=== PATIENT | female | born 1950 | race Caucasian/White ===

== ENCOUNTER 2017-04-26 13:29 | Inpatient (IN) | payer MEDICARE ==
[~2017-04-26] VITALS: Ht 162.6 cm; Wt 98.8 kg
--- NOTE | ~2017-04-26 | CON ---
PATIENT'S NAME: CHEVY CARRENO V [facility] AGE: 66 Y [address] ROOM: [address] [address] LOCATION: [facility] ADMIT DATE: 04/26/2017 Consultation DISCHARGE DATE: FAMILY PHYSICIAN: Nicole Anguiano MD ATTENDING PHYSICIAN: HENRI BUITRAGO DATE OF CONSULTATION: 05/04/2017 REFERRING PHYSICIAN: KEELY BOJORQUEZ MD INFECTIOUS DISEASE CONSULTATION: REASON FOR EVALUATION: Infected knee. CHIEF COMPLAINT: The patient states she is still having some diarrhea. HISTORY OF PRESENT ILLNESS: Ms. Carreno is a pleasant 66-year-old woman. She presented to outside facility with significant abdominal pain, nausea, and vomiting on April 22. She also had loose stools. She was diagnosed with urinary tract infection and possible diverticulitis. She was on quinolone and Flagyl. After this started, she started to have some left knee swelling and pain. She did make her way in transfer over here to [facility]. The knee story is actually a little unusual. She has had multiple surgeries to the knee. Apparently a month or so ago, she felt some sort of pop or whatever and then there was abnormal motion to the knee. It was not hurting. She was actually scheduled to have a revision done for mechanical failure. She was not having pain at that time, and it was still functioning. However, she started to have pain and swelling after the GI symptoms began. In any event, she made her way over here. The knee was aspirated. It has grown an organism (see discussion at end of note). She underwent a washout on the . Hardware remains in place as apparently if it were to require removal, she would end up with an above knee amputation. She dehisced her wound and went back to surgery on the . Knee is reportedly looking okay. At this time, the dressing is not to be removed so I did not remove it. She is still having some loose stools. It has improved, but she is still having some. She still feels a little bit lousy overall. I am asked to evaluate. PAST MEDICAL HISTORY: Significant for multiple knee surgeries, thyroid issues, dyslipidemia, high blood pressure, and heart disease. SOCIAL HISTORY: PATIENT'S NAME: CHEVY CARRENO V [facility] AGE: 66 Y [address] ROOM: [address] [address] LOCATION: G3N ADMIT DATE: 04/26/2017 Consultation DISCHARGE DATE: FAMILY PHYSICIAN: Nicole Anguiano MD ATTENDING PHYSICIAN: HENRI BUITRAGO A Negative for tobacco, alcohol, or drug use. FAMILY HISTORY: Positive for heart disease. REVIEW OF SYSTEMS: Pertinent positives include: GENITOURINARY: The patient with catheter in place. MUSCULOSKELETAL: The patient with knee issues. GASTROINTESTINAL: The patient with some loose stools and a little bit of abdominal discomfort. The patient denies other symptoms. Remainder of complete review of systems otherwise negative. PHYSICAL EXAMINATION: GENERAL: The patient is lying in bed, in no acute distress. Appears nontoxic. HEENT: The patient is anicteric. No conjunctival lesions noted. Ears, nose, throat, and tongue have no thrush. CARDIOVASCULAR: Heart is regular rate and rhythm. RESPIRATORY: Breathing is easy and unlabored. LUNGS: Clear bilaterally. GASTROINTESTINAL: Abdomen is soft, normoactive. Bowel sounds are present. Not really tender. GENITOURINARY: There is a catheter in place. NEUROLOGIC: The patient is awake, alert, appropriate in conversation. LYMPHATIC: No cervical lymphadenopathy. MUSCULOSKELETAL: The patient's left knee is in a brace. INTEGUMENTARY: The patient's IV site looks okay. She has no rash. LABORATORY STUDIES: Are reviewed. Her culture from the knee is listed as MRSA, but it has been sensitive to oxacillin. This does not make sense. ASSESSMENT AND RECOMMENDATIONS: Staphylococcus aureus (sensitivities not sure). 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 I do not think we can completely sterilize this area. Although there is thought that this was a hematogenously seated, so relatively acute infection, it is a well-established knee and so the chance of complete sterilization of the joint may be somewhat small. Hopefully, however, we can knock things back so it does not act up down the road. Should she require explant, from what she is telling me she may well end up with an above knee amputation. I have called the laboratory to discuss her sensitivity data, as it does not make sense. Unfortunately, the microbiology people are not there now and the people in the lab cannot answer my questions for me. I wonder if it tested mecA positive and yet tested positive as sensitive to the antibiotics? This may be why it was tagged as MRSA. Alternatively, there could PATIENT'S NAME: CHEVY CARRENO V [facility] AGE: 66 Y [address] ROOM: [id number] [place], [place] [address] LOCATION: [facility] ADMIT DATE: 04/26/2017 Consultation DISCHARGE DATE: FAMILY PHYSICIAN: Nicole Anguiano MD ATTENDING PHYSICIAN: HENRI BUITRAGO be just a principal database developer problem and it is actually an MSSA. If this is an MSSA, we should use a beta-lactam antibiotic as it is more effective. If it is unclear, we will have to stick with the vancomycin. She will require parenteral antibiotics through June 08. At that time, I would change her to indefinite oral therapy. She is currently on rifampin of 1200 mg a day. This is an extremely large dose and twice what is normally used. Even for prosthetic heart valve infections, we normally do not go above 900 mg per day. I will cut her dose to 300 mg twice a day and see if this helps her stomach out any. Thank you for allowing me to participate in the care of Ms. Carreno. I will hopefully have a little bit more information once I can speak to the microbiology lab tomorrow. MD OZZY OLIVERAQ/modl /[id number] d: t: 05/05/17 0919, CONSULTATION REPORT
--- NOTE | ~2017-04-26 | PN ---
PATIENT'S NAME: CHEVY MARTIN V [facility] AGE: 66 Y [address] ROOM: [address] [address] LOCATION: G3 ADMIT DATE: 04/26/2017 Progress Notes DISCHARGE DATE: FAMILY PHYSICIAN: Nicole Anguiano MD ATTENDING PHYSICIAN: HENRI BUITRAGO DATE OF SERVICE: 05/10/2017 On evening rounds today, I noted a 1 x 2 cm stain at the distal one-third of the patient's Mepilex dressing. She had an upper endoscopy today. Her Lovenox was held for this. She denies any form of trauma to the knee. She states that she is having virtually no knee pain. I removed the Mepilex dressing. When I did so, a segment of the Dermabond that we had placed at the distal third of the incision was noted to have dislodged, and a slow steady stream of mild rust-colored translucent and non-purulent fluid started to drain from a 2-mm orifice at the distal third of the incision. There was no tenderness at the knee. There was no fluctuance at the knee. There was no erythema or abnormal warmth at the knee. The remainder of the incision was clean, dry, and intact with intact sutures. I cleansed the skin around this orifice with Betadine and applied pressure, but there was a slow trickle of ongoing drainage. There appeared to be some focal skin necrosis in this region. I have therefore recommended that she be taken to the Operating Room this evening for debridement of the affected region of necrotic skin and re-closure of this area. She understands that her prosthesis is still in jeopardy. I cleansed the skin with Betadine and applied a sterile compressive dressing, and re-applied her knee immobilizer. Risks, benefits, limitations, and alternatives to this procedure have been reviewed with the patient, and informed consent has been granted. Fortunately, her Lovenox has been held since yesterday, and she has been n.p.o. since breakfast due to her endoscopy today. All of her questions and concerns have been answered to her satisfaction. We will obtain deep cultures. We will continue to attempt to salvage her prosthesis and her leg. PATIENT'S NAME: CHEVY MARTIN V [facility] AGE: 66 Y [address] ROOM: [address] [address] LOCATION: G3 ADMIT DATE: 04/26/2017 Progress Notes DISCHARGE DATE: FAMILY PHYSICIAN: Nicole Anguiano MD ATTENDING PHYSICIAN: HENRI BUITRAGO MD MARY PABLO/denisa /[id number] d: 05/10/17 2338 t: 06/03/17 0748, PROGRESS NOTES
--- NOTE | ~2017-04-26 | OR ---
PATIENT'S NAME: CHEVY CARRENO V [facility] AGE: 66 Y [address] ROOM: [place] [address] LOCATION: [facility] ADMIT DATE: 04/26/2017 OR/Procedure Report DISCHARGE DATE: 05/13/2017 FAMILY PHYSICIAN: Nicole Anguiano MD ATTENDING PHYSICIAN: Deion Lemus SURGEON: Aldo Julian MD GEOTHERMAL ELECTRICAL ENGINEER: Jeet. DATE OF PROCEDURE: 05/10/2017 CORRECTED COPY -- ACCT NO / 05-23-2017 / KLD PREOPERATIVE DIAGNOSES: 1. Focal skin necrosis and focal wound dehiscence, left knee incision. 2. Status post irrigation and debridement of periprosthetic left knee infection. POSTOPERATIVE DIAGNOSES: 1. Focal skin necrosis and focal wound dehiscence, left knee incision. 2. Status post irrigation and debridement of periprosthetic left knee infection. PROCEDURE PERFORMED: Irrigation, debridement, and closure of left knee wound dehiscence (excision of skin, irrigation, and wound closure). ANESTHESIA: General endotracheal anesthesia. ESTIMATED BLOOD LOSS: Less than 10 mL. SPECIMENS: Fluid from wound for cell count and routine cultures. COMPLICATIONS: None. IMPLANTS: None. INDICATION FOR PROCEDURE: Ms. Carreno is a 66-year-old female who has a periprosthetic left knee infection. We are attempting to retain her implants due to the fact that she has had multiple previous revisions and severe distal femoral and proximal tibial bone loss (requiring segmental replacement of the proximal tibia and distal femur with a rotating hinge prosthesis). She has been experiencing virtually no knee pain, and her incision had appeared benign until the afternoon of surgery when a small area of focal drainage was noted on her Mepilex dressing. When this was removed, focal drainage was noted from a small orifice at the distal aspect of her incision where there was unhealthy skin at the margins. The drainage was nonpurulent and appears consistent with liquified hematoma. I recommended that the patient be taken promptly to the operating room for debridement of the skin margins and wound closure. She has antibiotic-impregnated dissolvable beads within the knee. Of note, this PATIENT'S NAME: CHEVY CARRENO V [facility] AGE: 66 Y [address] ROOM: [place] [address] LOCATION: [facility] ADMIT DATE: 04/26/2017 OR/Procedure Report DISCHARGE DATE: 05/13/2017 FAMILY PHYSICIAN: Nicoel Anguiano MD ATTENDING PHYSICIAN: Deion Lemus A region of the wound corresponds to the area where there is virtually no subcutaneous fascia or tissue of any sort between the skin and the segmental proximal tibial component. The patient understands the potential for persistent infection. As soon as this drainage was noted, the skin surrounding this was prepped with Betadine, and a sterile compressive dressing was applied. Informed consent granted. DESCRIPTION OF PROCEDURE: The patient positioned supine. Photographic documentation of the wound was obtained. General endotracheal anesthesia had been administered. A well-padded pneumatic tourniquet was placed around the left proximal thigh, but this was not used during the case. The left lower extremity was prepped and draped with vigilant sterile technique. The incision was clean, dry, and intact except for the above specified 2 mm orifice approximately 5 cm from the distal margin of the incision. I removed the nonresorbable cutaneous sutures 2 cm proximal and 2 cm distal to this region. There was marginal skin necrosis at the small area. I sharply debrided the skin margins (approximately 3 mm on each side). There were healthy bleeding skin margins at both the medial and lateral edges of the debrided wound. It should be noted that there was a moderate amount of translucent, brown-colored fluid (consistent with liquified hematoma) deep to the skin. This was sent for cell count and routine cultures. I irrigated the exposed portion of the wound with 2000 mL of sterile saline containing bacitracin. The skin was closed with buried interrupted 0 PDS sutures followed by horizontal mattress interrupted 2-0 nylon sutures. Photographic documentation of the wound was obtained after wound closure. I applied Dermabond to this segment of the wound prior to applying a new Mepilex dressing and a gently compressive Cheng wrap. The knee immobilizer was replaced with 5 layers of cast padding at its proximal and distal margins. The patient was extubated and transported to the postanesthesia care unit in stable, comfortable condition. The telephone number on the chart for the patient's was, in fact, the patient's cellphone number, so I contacted her daughter. I informed the patient's daughter that the patient's surgery had gone well, but that we will need to remove her prosthesis if we cannot get the wound healed and/or if we cannot successfully suppress this infection. I asked the patient's daughter to pass this information onto the patient's and encouraged her to have the patient's call me through the hospital answering service this evening if he desires. I explained that not only may the prosthesis need to be removed, but she is still at risk for requiring an above-knee amputation PATIENT'S NAME: CHEVY CARRENO V [facility] AGE: 66 Y [address] ROOM: [place] [address] LOCATION: [facility] ADMIT DATE: 04/26/2017 OR/Procedure Report DISCHARGE DATE: 05/13/2017 FAMILY PHYSICIAN: Nicole Anguiano MD ATTENDING PHYSICIAN: Deion Lemus (due to her history of recurrent infection and extensive bone loss). She is not a candidate for knee fusion based upon the extent of bone loss. MD MARY PABLO/denisa /[id number] CORRECTED COPY -- ACCT NO / 05-23-2017 / KLD d: 05/11/17 1139 t: 06/03/17 0753, OPERATIVE SUMMARY
--- NOTE | ~2017-04-26 | OR ---
PATIENT'S NAME: CHEVY MARTIN V [facility] AGE: 66 Y [address] ROOM: [place] [address] LOCATION: [facility] ADMIT DATE: 04/26/2017 OR/Procedure Report DISCHARGE DATE: FAMILY PHYSICIAN: PHYSICIAN, UNKNOWN ATTENDING PHYSICIAN: HENRI BUITRAGO SURGEON: Aldo Julian MD CLIENT EVALUATOR: DATE OF PROCEDURE: 04/26/2017 PREOPERATIVE DIAGNOSES: 1. Left knee effusion. 2. Potential septic arthritis. 3. Potential acute periprosthetic infection. 4. Recent urinary tract infection. 5. Recent acute intra-abdominal process with suspected possible hematogenous dissemination of infection to left knee. POSTOPERATIVE DIAGNOSES: 1. Left knee effusion. 2. Potential septic arthritis. 3. Potential acute periprosthetic infection. 4. Recent urinary tract infection. 5. Recent acute intra-abdominal process with suspected possible hematogenous dissemination of infection to left knee. PROCEDURE PERFORMED: Left knee aspiration. ANESTHESIA: Local. SPECIMENS: Synovial fluid for Gram stain, cell count, and routine culture. COMPLICATIONS: None. INDICATIONS FOR PROCEDURE: Please refer to my separately dictated consultation note from this afternoon. The patient was informed of the risk of iatrogenic infection. Informed consent was granted. DESCRIPTION OF PROCEDURE: With the patient positioned supine, the anterolateral aspect of her left knee was prepped several times with DuraPrep. Subcutaneous tissues lateral to the patella were infiltrated with 5 mL of 1% plain lidocaine using a 25-gauge needle. The skin was re-prepped with DuraPrep, and a 20-gauge needle was advanced through the anesthetized area and into the joint space. The 7 mL of frankly purulent, non-translucent fluid was aspirated. Unfortunately, this confirmed my preoperative suspicion that this could represent a periprosthetic infection. Fluid analysis is pending. PATIENT'S NAME: CHEVY MARTIN V [facility] AGE: 66 Y [address] ROOM: [place] [address] LOCATION: [facility] ADMIT DATE: 04/26/2017 OR/Procedure Report DISCHARGE DATE: FAMILY PHYSICIAN: PHYSICIAN, UNKNOWN ATTENDING PHYSICIAN: HENRI BUITRAGO However, I have informed the patient that we anticipate proceeding with irrigation and debridement and attempted prosthetic retention first thing tomorrow morning (pending medical clearance). Medical workup of her abdominal pain (in General Surgical consultation) is pending. I have made arrangements for urgent Operating Room availability tomorrow morning. Compatible parts will be available by then such that we can exchange the patient's bearing. We will place antibiotic-impregnated beads and treat her with six weeks of intravenous antibiotics and subsequent chronic oral suppressive antibiotics. She understands that suppression of the infection may fail (under which circumstances, component extraction and potential above-knee amputation may be warranted). She has lost too much bone for arthrodesis to be an option. She gives us consent to proceed with component extraction tomorrow if we deem this absolutely necessary, but she wishes to do everything possible to attempt to salvage her prosthesis. We discussed technical aspects of this procedure, as well as risks and limitations thereof. We have specifically discussed the potential for persistent and/or recurrent infection, deep venous thrombosis, pulmonary embolism, neurovascular complications, blood transfusion risks, as well as the potential need for secondary irrigation and debridement, as well as potential need for above-knee amputation at a later date. Informed consent was granted. MD MARY PABLO/denisa /[id number] d: 04/27/17 0022 t: 05/01/17 2145, OPERATIVE SUMMARY
--- NOTE | ~2017-04-26 | CON ---
PATIENT'S NAME: CHEVY CARRENO V [facility] AGE: 66 Y [address] ROOM: [address] [address] LOCATION: [facility] ADMIT DATE: 04/26/2017 Consultation DISCHARGE DATE: FAMILY PHYSICIAN: Nicole Anguiano MD ATTENDING PHYSICIAN: HENRI BUITRAGO REFERRING PHYSICIAN: KEELY BOJORQUEZ MD HISTORY OF PRESENT ILLNESS: Ms. Carreno developed serosanguineous drainage from the distal aspect of her left knee incision night before last. Inspection of the wound at that point demonstrated focal drainage from the distal aspect of her incision. The skin was cleansed with Betadine, and a new sterile occlusive dressing was applied with compression. Recurrent drainage was noted through the Mepilex dressing today. I have held her Lovenox due to the fact that the drainage was noted to be sanguinous night before last. The patient denies any trend of increased discomfort. In fact, her knee pain has been decreasing with time. She has been bearing full weight, but she notes that her preoperative recurvatum has been eradicated. Inspection demonstrates that the Mepilex dressing and overlying Cheng wrap are saturated with sanguineous fluid. The proximal two-thirds of her incision is clean, dry, and intact. A 3 cm segment and the distal one-third of her incision has dehisced approximately 2 cm wide, and there are exposed antibiotic impregnated beads. There is no exposed hardware. IMPRESSION: Wound dehiscence, periprosthetic left knee infection (methicillin-resistant Staphylococcus aureus), compromised skin, absence of underlying fascia. RECOMMENDATIONS: For irrigation and debridement and wound closure. The patient understands that removal of her hardware may be necessary at a later date. It would appear that underlying sutures have failed secondary to increased tension on this area associated with the fact that there is no underlying fascia. I will irrigate with Bactisure as well. I have confirmed that this is available. I reviewed risks, benefits, limitations, and alternatives to this procedure. Again, removal of her implants would leave extremely compromised residual bone (so much though that reimplantation might be an option for her, and, hence, above knee amputation may be necessary). Therefore, we will continue to attempt to retain her implants. However, if the wound breaks down again, we PATIENT'S NAME: CHEVY CARRENO V [facility] AGE: 66 Y [address] ROOM: [id number] [place], [place] [address] LOCATION: [facility] ADMIT DATE: 04/26/2017 Consultation DISCHARGE DATE: FAMILY PHYSICIAN: Nicole Anguiano MD ATTENDING PHYSICIAN: HENRI BUITRAGO King will proceed with resection arthroplasty and potential above-knee amputation. She understands and accepts this. We reviewed the potential for persistent and/or recurrent infection, deep venous thrombosis, pulmonary embolism, mortality, neurovascular complications, blood transfusion risks, and the potential need for further surgery. Arrangements have been made for surgery later today. MD MARY PABLO/denisa /[id number] d: 05/01/17 2338 t: 05/11/17 1743, CONSULTATION REPORT
--- NOTE | ~2017-04-26 | DS ---
PATIENT'S NAME: CHEVY MARTIN V [facility] AGE: 66 Y [address] ROOM: [address] [place], [place] [address] LOCATION: G3N ADMIT DATE: 04/26/2017 Discharge Summary DISCHARGE DATE: 05/13/2017 FAMILY PHYSICIAN: Nicole Anguiano MD ATTENDING PHYSICIAN: Deion Lemsu PRINCIPAL DIAGNOSIS: 1. Methicillin-susceptible Staphylococcus aureus, left knee periprosthetic infection. 2. Mechanical failure, left total knee. 3. Left knee wound dehiscence. 4. Acute kidney injury. 5. Gastroenteritis with persistent nausea. 6. Chronic hypokalemia. 7. Anemia, blood loss type. 8. Essential hypertension. 9. Moderate PCM (which is protein calorie malnutrition). 10. Vitamin D deficiency. 11. Obesity. HOSPITAL COURSE: Please reference any of the admitting data to the history and physical as dictated by Dr. Deion Lemus. Briefly, this 66-year-old lady who was admitted into an outside hospital for gastroenteritis, was placed on Levaquin and Flagyl, was transferred here for higher level of care and further evaluation and management. The gastroenterology workup proceeded. A CT abdomen and pelvis showed no acute concern. Amylase and lipase were negative. A procalcitonin level was mildly elevated at 1.80. Urinalysis was negative for infection. She did have a mild elevated sedimentation rate of 81 and CRP of 27.8. She was given symptomatic support with IV analgesia and antiemetics. She was placed on IV fluids. She was placed on Zosyn empirically. She reported pain in her knee and x-ray showed concerns of gas in the subcutaneous tissues as well as significant soft tissue swelling and joint effusion and because of the elevated inflammatory markers, an orthopedic consultation was obtained. Aspirate of the left knee was reportedly pus-filled. Because of concern for periprosthetic infection, her Zosyn was then changed to vancomycin and IV ceftriaxone. She was further evaluated by surgery given her abdominal issues but most likely felt to be gastroenteritis, so she was optimized for surgical irrigation and debridement as well as the revision of the left knee arthroplasty and revision of the entire femoral component except for the femoral stem. He also revised the tibial insert and rotating hinge linkage and bushing. An extensive synovectomy was done and antibiotic-impregnated beads were placed. Postoperatively, she recovered relatively well. She was kept on the IV antibiotics. Culture from the [facility] showed MRSA. Blood cultures PATIENT'S NAME: CHEVY MARTIN V [facility] AGE: 66 Y [address] ROOM: [id number] [place], [place] [address] LOCATION: [facility] ADMIT DATE: 04/26/2017 Discharge Summary DISCHARGE DATE: 05/13/2017 FAMILY PHYSICIAN: Nicole Anguiano MD ATTENDING PHYSICIAN: Deion Lemus remained negative. Dr. Julian added rifampin per pharmacy dosing. PICC line was placed. 48 hours after blood culture were obtained and were deemed negative. On the , the patient's wound dehisced and she was taken back to the operating room for a secondary irrigation and debridement of the left knee including debridement of the skin and antibiotic-impregnated beads. She then returned and recovered. We held off on Lovenox until okay with Orthopedics starting on 05/03/2017. She did have some postoperative bleeding but did not require any transfusion trending her hemoglobin. Infectious Disease consultation was obtained on the with Dr. Jackson who reviewed the sensitivities and found that the MRSA listed was sensitive to oxacillin. So further review with micro team reported errant culture data, which actually was MSSA. Also found to have a supratherapeutic dose given rifampin, so this was changed. Because of the MSSA, the patient's vancomycin was stopped and changed to cefazolin for appropriate coverage with the rifampin. The patient then proceeded for a third irrigation and debridement and closure of the left knee wound on 05/10/2017 without complication. She was mobilized safely with physical therapy but felt to be needing transition to swing bed or usp facility for close observation and further restorative cares as well as antibiotic treatment. The patient had complicated stay given the patient's gastroenteritis when she initially presented. She was C. diff negative. She was kept prophylactically on a probiotic. She continued to have persistent nausea even with oral and IV antiemetics. She did get somewhat better but was not taking adequate oral intake. Narcotic regimen was changed as this was felt initially a secondary cause but she did not have a good response. So, we then felt that maybe secondary to her supratherapeutic rifampin dosing, she was having a side effect of toxicity; however, her liver function tests were within normal limits. She did have some associated diarrhea and electrolyte loss requiring oral and IV replacement. She had a mild acute kidney injury which required IV fluid resuscitation. Because of the persistence, we asked Gastroenterology for consultation who proceeded with an endoscopy which did not reveal anything. Biopsies were taken. Antireflux prescriptions were maximized. Medications in general were minimized. We prescribed Zofran 30 minutes prior to all medication use in the morning and evening with some benefit. We also stopped the rifampin as concern for associated nausea. This was discussed first with Infectious Disease. If no improvement in 48 hours though, the patient should be noted to resume the rifampin at the previous dosing. CONSULTING PROVIDERS: 1. Dr. Aldo Julian of Orthopedics. 2. Dr. Jackson of Infectious Disease. 3. Dr. Ash of Gastroenterology. PROCEDURES: On 04/26/2017, the patient underwent a left knee aspiration. On PATIENT'S NAME: CHEVY MARTIN V [facility] AGE: 66 Y [address] ROOM: [address] [address] LOCATION: [facility] ADMIT DATE: 04/26/2017 Discharge Summary DISCHARGE DATE: 05/13/2017 FAMILY PHYSICIAN: Nicole Anguiano MD ATTENDING PHYSICIAN: Deion Lemus 04/27/2017, the patient underwent an irrigation and debridement of the left knee with revision of the left total knee arthroplasty as well as a revision of the tibial polyethylene insert and rotating hinge linkage and bushing. She had an extensive synovectomy and placement of antibiotic-impregnated beads. On 05/01/2017, the patient underwent a secondary irrigation and debridement of the left knee with placement of new antibiotic-impregnated beads. On 05/10/2017, the patient underwent an irrigation and debridement and closure of the left knee wound dehiscence. The patient underwent an endoscopy with Gastroenterology. RADIOLOGIC IMAGING: Initial chest x-ray was negative. A knee x-ray showed pertinent positive results of soft tissue swelling and evidence of joint effusion with gas in the subcutaneous tissues concerning for cellulitis and osteomyelitis. CT abdomen and pelvis upon initial presentation showed no acute findings. A postoperative knee x-ray on 04/27/2017, showed appropriate antibiotic beads in place. A chest x-ray on 05/04/2017, showed no evidence of pneumonia. MICROBIOLOGY DATA: Stools were negative, blood cultures were negative, initial synovial fluid was MSSA positive, urine was negative. LABORATORY DATA: Pertinent positive results were elevated CRP and sedimentation rate. Her renal function showed a normal creatinine up to 1.5 and on dismissal was 1.2. Potassium replacement occurred nearly daily. She had finally optimized on day of discharge with a potassium 3.7, sodium 142, chloride 107, CO2 of 28, calcium of 10.4. Liver function showed an AST of 30, ALT of 23, alkaline phosphatase 108, total bilirubin 0.4, amylase and lipase were normal. A TSH was 15.40 on day of discharge. Vitamin D level was 16. Pre-albumin was 13. Synovial counts and color showed pink with 4+ turbidity, 428,000 red blood cells, and 416,200 white blood cells. DISCHARGE MEDICATIONS: 1. Cefepime 2 g IV q.12 until 06/08/2017. 2. Tylenol 1000 mg p.o. every 6 hours. 3. Amlodipine 10 mg p.o. every day. 4. Os-Isidoro 500 mg p.o. twice daily with meals. 5. Lovenox 30 mg subcutaneous twice daily. 6. Pepcid 20 mg p.o. twice daily. 7. Flonase 50 mcg per puff, 2 puffs each nares every day. 8. Apresoline 25 mg p.o. 4 times daily. PATIENT'S NAME: CHEVY MARTIN V [facility] AGE: 66 Y [address] ROOM: [place] [address] LOCATION: [facility] ADMIT DATE: 04/26/2017 Discharge Summary DISCHARGE DATE: 05/13/2017 FAMILY PHYSICIAN: Nicole Anguiano MD ATTENDING PHYSICIAN: Deion Lemus 9. Levothyroxine 125 mcg p.o. daily, this is a new dose. 10. Claritin 10 mg p.o. every night at bedtime. 11. Lopressor 50 mg p.o. twice daily. 12. Nystatin powder to be applied topically 3 times daily to the groin for 2 weeks total, stop date is 05/18/2017. 13. Zofran ODT 4 mg p.o. twice daily at 0700 and 2030, 30 minutes prior to morning and bedtime medications with strict instructions. 14. Prilosec 20 mg p.o. twice daily. 15. Potassium chloride 20 mEq p.o. twice daily. 16. Pravastatin 40 mg p.o. every night at bedtime. 17. Florastor 250 mg p.o. twice daily. 18. [place] 10/325 mg 1 p.o. every 6 hours as needed for severe pain. 19. Vitamin D 50,000 units, once weekly on Wednesdays. Stop date 06/29/2017 at 0900 hours. 20. Tylenol 650 mg p.o. every 6 hours as needed. Max 4000 mg per day. 21. Dulcolax 10 mg per rectum as needed. 22. Chloraseptic [place] 1 p.o. every 2 hours as needed. 23. Diazepam 2.5 to 5 mg p.o. every 6 hours as needed. 24. Benadryl 25-50 mg p.o. every 6 hours as needed. 25. Benadryl cream 1 application topically twice daily as needed for itching to affected area. 26. Imodium 2 mg p.o. as needed for loose stools. 27. Milk of magnesia 30 mL p.o. as needed for constipation. 28. Ultram 50 mg p.o. every 4 hours as needed. 29. Chlorthalidone 25 mg p.o. every morning. 30. Naproxen is stopped. 31. Hold lisinopril until further evaluated by her primary care provider, Dr. Rizo. DISCHARGE INSTRUCTIONS: The patient will be discharged to [facility] under the care of Dr. Jamie Rizo. Dr. Garcia spoke with Dr. Rizo at the time of discharge and updated him on the current patient status and hospitalization. He will see her at [facility] at his next visit. She will also need to follow up with Dr. Julian in 1 week as well as Infectious Disease, next 05/18/2017, appointment to be determined. Her code status will be full code. Her diet as tolerated. Health supplement 3 times daily and as needed. Her weightbearing status is as tolerated with absolutely no range of motion and keep left leg elevated. Occupational and Physical Therapy to evaluate and treat the patient as indicated. Dressing changes to the left knee are recommended as do not change the dressings. Please call Dr. Julian's office PATIENT'S NAME: CHEVY MARTIN V [facility] AGE: 66 Y [address] ROOM: [place] [address] LOCATION: [facility] ADMIT DATE: 04/26/2017 Discharge Summary DISCHARGE DATE: 05/13/2017 FAMILY PHYSICIAN: Nicole Anguiano MD ATTENDING PHYSICIAN: Deion Lemus immediately if any signs or symptoms of increased pain, increased fever, drainage, or erythema around the site. She is to have a left knee immobilizer on at all times. Followup laboratory testings to include a CBC weekly along with a CMP and sedimentation rate on 05/17/2017. She should also have her pre- albumin checked as needed and a vitamin D level follow up on 07/06/2017. PICC line cares to be routine. Her rehab potential is good. Her discharge potential is good. The patient and family are well aware of the condition and prognosis of the patient. The above line of management was discussed with the patient and all questions were answered with statements of satisfaction and understanding. Total time arranging discharge was greater than 35 minutes and coordinating the care of this patient. Thank you for allowing us to participate in care of this patient while at [facility]. VESTA POTTS APRN, APRN FOR MD ROE BOSWELL/denisa /[id number] CC: MD Jamie Nichols MD d: t: 05/14/17 1833, DISCHARGE SUMMARY
--- NOTE | ~2017-04-26 | CON ---
PATIENT'S NAME: CHEVY MARTIN V [facility] AGE: 66 Y [address] ROOM: [address] [place], [place] [address] LOCATION: G3N ADMIT DATE: 04/26/2017 Consultation DISCHARGE DATE: FAMILY PHYSICIAN: Nicole Anguiano MD ATTENDING PHYSICIAN: HENRI BUITRAGO DATE OF CONSULTATION: 05/09/2017 REFERRING PHYSICIAN: KEELY BOJORQUEZ MD REFERRING PROVIDER: Tamie Garcia MD REASON FOR CONSULTATION: Diarrhea and persistent nausea. HISTORY OF PRESENT ILLNESS: This is a very pleasant 66-year-old female, who was admitted on April 26, 2017, with an infected left knee, status post I and D of the left knee periprosthetic infection that completed on 05/01/2017. The patient previous to her admission began having significant nausea, vomiting, and diarrhea. This has not been worked up essentially secondary to her acute knee infection. The patient has been seen by Infectious Disease and has been given numerous antibiotics. Stool workup has been completed that has been negative for O and P, occult culture, as well as C. diff. The patient states that her symptoms began all of the sudden at the end of March that began with nausea and vomiting. She says at this time her vomit was much more bilious in nature without any blood. She was admitted to an outside facility at that time and then subsequently developed loose diarrhea. At this time, they thought it was related to gastroenteritis, though her symptoms have continued. She does report having a colonoscopy done within the last 10 years that she states was negative. Denies any history of upper endoscopy. 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 The patient states that her nausea is consistent throughout the day. She does state that the vomiting has subsided, though she continues to feel nauseous. For diarrhea, she does state that it is very loose as well as "hard to control" at times. She does complain of significant urgency. Denies any blood or melena in the stool. She does say at one point it appeared to be maroon-colored, though denies any of the change in color recently. She does have some abdominal cramping located on the right lower side. Denies any praveen abdominal pain, fever, or chills associated with this. PAST MEDICAL HISTORY: Multiple knee surgeries, thyroid issues, dyslipidemia, high blood pressure, and heart disease. PATIENT'S NAME: CHEVY MARTIN V [facility] AGE: 66 Y [address] ROOM: [address] [place], [place] [address] LOCATION: [facility] ADMIT DATE: 04/26/2017 Consultation DISCHARGE DATE: FAMILY PHYSICIAN: Nicole Anguiano MD ATTENDING PHYSICIAN: HENRI BUITRAGO SOCIAL HISTORY: Negative for tobacco, alcohol, or drug use. FAMILY HISTORY: Positive for heart disease. Denies any known gastrointestinal diseases or allergies to her knowledge. ALLERGIES: LATEX. CURRENT MEDICATIONS: Please refer to the medication administration record. REVIEW OF SYSTEMS: All-point review of systems was completed. All were negative with the exception of those identified in the history of present illness. PHYSICAL EXAMINATION: GENERAL: A very pleasant, 66-year-old female, who appears to be in no acute distress. VITAL SIGNS: Temperature 98.4, pulse of 81, respirations of 16, blood pressure 174/79, and oxygen saturation is 92% on room air. SKIN: [place], warm, and dry. No jaundice. HEENT: Head is normocephalic and atraumatic. Pupils are equal, round, and reactive to light. Sclerae are clear. Nonicteric. Oral mucosa is pink and moist. No thyromegaly. NECK: Soft and supple. CARDIOVASCULAR: Regular. Normal S1 and S2. RESPIRATORY: Respirations even and unlabored. LUNGS: Clear to auscultation. ABDOMEN: Soft, round, nontender, and nondistended. Bowel sounds are positive x4 quadrants. MUSCULOSKELETAL: No muscle weakness or atrophy. EXTREMITIES: No edema. NEUROLOGIC: Grossly nonfocal. LABORATORY DATA AND IMAGING STUDIES: Again, stool workup has been negative for occult stool, C. diff, O and P, as well as a culture. White blood cell count of 8.9, hemoglobin of 8.7, hematocrit of 28.2, and platelets of 351. Chemistry panel includes a glucose of 132, BUN of 15, creatinine of 1.4, sodium of 140, potassium of 3.0, chloride of 101, CO2 of 28, albumin of 2.1, phosphorus of 3.5, and magnesium of 1.9. Previous amylase and lipase completed on 05/07/2017, showed amylase of 43 and lipase of 208. CRP at that time was 10.10. TSH completed on 05/07/2017, showed a thyroid of 17.6. In regard to diagnostics, the patient did undergo a PATIENT'S NAME: CHEVY MARTIN V [facility] AGE: 66 Y [address] ROOM: [address] [address] LOCATION: [facility] ADMIT DATE: 04/26/2017 Consultation DISCHARGE DATE: FAMILY PHYSICIAN: Nicole Anguiano MD ATTENDING PHYSICIAN: HENRI BUITRAGO A CT of the abdomen and pelvis on admission, 04/26/2017, this showed no free air with no findings of bowel obstruction, surgically absent gallbladder, vascular calcifications, and small sliding hiatal hernia. ASSESSMENT AND PLAN: Again, this is a very pleasant 66-year-old female, who was admitted on 04/26/2017 with infected left knee, Methicillin-sensitive Staphylococcus aureus in source, with wound dehiscence status post I and D of the left knee periprosthetic infection. We were asked to see in consultation for the patient's persistent nausea and diarrhea. At this time, we will discuss with the patient's medical team. I do question that the patient will need to undergo an upper endoscopy to rule out peptic ulcer disease as well as possible colonoscopy with biopsy to rule out microscopic colitis. This may be postinfectious irritable bowel syndrome with the patient's acute infection that is currently present. Again, this will be discussed with the Medical Team. The patient is willing to go forth with these procedures if needed. Further recommendations to be given after discussion with Medical Care Team. Thank you for this consult. SINCERE MORALES APRN FOR JASWANT ROSALES MD MMF/modl /[id number] d: 05/09/171932 t: 05/12/17 1643, CONSULTATION REPORT
--- NOTE | ~2017-04-26 | CON ---
PATIENT'S NAME: CHEVY MARTIN V [facility] AGE: 66 Y [address] ROOM: [id number] [place], [place] [address] LOCATION: GPCU ADMIT DATE: 04/26/2017 Consultation DISCHARGE DATE: FAMILY PHYSICIAN: PHYSICIAN, UNKNOWN ATTENDING PHYSICIAN: HENRI LEMUS DATE OF CONSULTATION: 04/26/2017 REFERRING PHYSICIAN: KEELY BOJORQUEZ MD HISTORY OF PRESENT ILLNESS: Dr. Lemus has requested that I provide an inpatient consultation on this 66- year-old female. I have been asked to evaluate her knee. 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 She underwent a distal femoral replacement and proximal tibial replacement- type hinge revision total knee arthroplasty. Her postoperative course was significant for slow epithelialization of the skin at the distal aspect of her incision. However, she never developed an infection and her knee has served her very well over the past year. Approximately one month ago, she experienced a sudden "pop" in her knee, after which her knee began to hyperextend. She has been able to continue to bear full weight on her knee. Her presentation was suspicious for mechanical failure of the hinge component of her revision knee construct. I consulted with the manufacture and I was informed that had been a series of instances of the plastic extension block on the axle fracturing (presenting in a similar fashion). I convinced the patient to undergo revision and she had been scheduled to undergo revision of her axle mechanism later this week. The patient's knee had been pain free and it was difficult to convince her to undergo this revision due to the fact that she has recently started a new job (2 weeks ago), and given the fact that her knee has been pain-free and continuing to function well (except for the recurvatum). Nonetheless, she agreed to being scheduled for revision of her hinge mechanism later this week. I have had her in a knee brace with an extension block and she has continued to wear this. She awoke last Tuesday (4 days ago) with no knee pain. She went to work and had no pain at work. She was on her feet all day at work. She developed abdominal pain that night. She went to bed with no knee pain. She states that she "tossed and turned all night" because of abdominal pain. She states, "it felt like my guts were twisting." She awoke with left knee pain. She noticed this is when she first started bearing weight on the left knee. She attributed her knee pain to having "tossed and PATIENT'S NAME: CHEVY MARTIN V [facility] AGE: 66 Y [address] ROOM: [address] [address] LOCATION: GPCU ADMIT DATE: 04/26/2017 Consultation DISCHARGE DATE: FAMILY PHYSICIAN: PHYSICIAN, UNKNOWN ATTENDING PHYSICIAN: HENRI LEMUS turned all night." She denies any form of trauma to the knee. Her abdomen remained a much greater source of discomfort. She endured this throughout the day on Tuesday, but she developed chills and progressive knee pain. She was admitted to the [facility] with signs and symptoms of "gastroenteritis" (nausea, abdominal pain, and diarrhea). She was diagnosed with gastroenteritis and she was found to have a urinary tract infection. She has been on antibiotics over the past 3 days. The Hospitalist Team was called by the [facility] earlier today and Dr. Lemus accepted the patient for transfer. The patient states that she "did not pay much attention to the knee" while at [place] due to the fact that her abdomen was the primary source of discomfort. She states that her abdomen was far more symptomatic than her knee. She states that her knee has been essentially pain free when she lays supine in bed. Her knee has been painful when she attempts to bear weight. She has noticed progressive swelling of her left knee over the past few days. Her abdomen remains much more severely symptomatic than her knee. She states that her abdominal pain has improved only slightly over the past 4 days. The patient states that she called my office yesterday to inform that she would need to cancel her knee surgery this Tuesday due to the fact that she had developed a urinary tract infection and abdominal discomfort and had been hospitalized. She states that she did not mention that her knee bothered her due to the fact that her abdomen was her primary source of discomfort and that she had attributed her knee discomfort to having been so active on Tuesday. PHYSICAL EXAMINATION: GENERAL: The patient is alert and oriented. She has good recall and gives a consistent history. Nonetheless, she is in moderate distress (which she attributes to abdominal pain). She denies significant knee pain at rest. ABDOMEN: Soft, but diffusely tender. EXTREMITIES: Her left knee demonstrates considerable subcutaneous fluctuance. She is unable to maintain her knee in an extended position. There is no gross varus or valgus laxity. There is no deformity. There are no active skin lesions. There is a well-healed midline scar. There is no erythema. There is mild generalized increased warmth and moderate generalized tenderness at the knee. There is no flexion contracture at the knee. She is able to actively dorsiflex and plantar flex the left ankle with good motor strength. 1+ dorsalis pedis pulse. RADIOGRAPHS: Left knee and left tibia and fibula AP and lateral radiographs demonstrate a well-fixed, well-aligned, tumor-type hinge prosthesis. The tibial and femoral stems are cemented. These are extended cemented stems. There is no subluxation at the knee. However, the tibial tubercle remnant seems to have migrated somewhat anteriorly and laterally. There are 2 foci of subcutaneous PATIENT'S NAME: CHEVY MARTIN V [facility] AGE: 66 Y [address] ROOM: [address] [place] [id number] [facility] ADMIT DATE: 04/26/2017 Consultation DISCHARGE DATE: FAMILY PHYSICIAN: PHYSICIAN, UNKNOWN ATTENDING PHYSICIAN: HENRI LEMUS air at the knee. There is no fracture of the femoral or tibial shafts, and the tibial and femoral components remain well fixed. IMPRESSION: Septicemia (presumably of abdominal and/or urinary tract infection origin). Ongoing acute abdominal symptoms. Recent onset of acute left knee swelling. The differential diagnosis for the acute left knee pain and swelling includes mechanical irritation of the knee (associated with high activity level and recent failure of the hinge mechanism) versus hematogenous dissemination of infection from her recently diagnosed urinary tract infection and/or intraabdominal infectious process (including potential diverticulitis), versus a combination of both. RECOMMENDATIONS: I am extremely concerned regarding the potential for hematogenous dissemination of infection to her knee. Hopefully, this is not the case, but aspiration is warranted, and the subcutaneous air noted on the plain radiographs is concerning. The patient has given informed consent to proceed with aspiration. I have informed her that periprosthetic infection (if present) may be difficult to eradicate and that, therefore, an above knee amputation may be necessary. We will do everything possible to salvage the limb. I have explained the potential for a false-negative aspiration (given the fact that the patient has been on several days of intravenous antibiotics). I am concerned about the patient's abdominal exam. Dr. Lemus has ordered a CT scan. I have asked Dr. Martin (general surgeon on-call) to evaluate the patient's abdomen as well. I have requested that compatible bearing mechanism components be brought in to be available earlier in the week than had previously been planned. Instrumentation is in the hospital, but implants are en route from [place]. The patient will be kept at bedrest until further notice. Mechanical DVT prophylaxis has been initiated. I have discussed my thoughts and recommendations directly with Dr. Lemus. PATIENT'S NAME: CHEVY MARTIN V [facility] AGE: 66 Y [address] ROOM: [address] [address] LOCATION: GPCU ADMIT DATE: 04/26/2017 Consultation DISCHARGE DATE: FAMILY PHYSICIAN: PHYSICIAN, UNKNOWN ATTENDING PHYSICIAN: HENRI LEMUS MD JMW/denisa /[id number] CC: Henri Lemus MD d: 04/26/17 2347 t: 05/01/17 2142, CONSULTATION REPORT
--- NOTE | ~2017-04-26 | OR ---
PATIENT'S NAME: CHEVY MARTIN V [facility] AGE: 66 Y [address] ROOM: [address] [address] LOCATION: [facility] ADMIT DATE: 04/26/2017 OR/Procedure Report DISCHARGE DATE: 05/13/2017 FAMILY PHYSICIAN: Nicole Anguiano MD ATTENDING PHYSICIAN: Deion Lemus SURGEON: Aldo Julian MD SLASHER: DATE OF PROCEDURE: 04/27/2017 ADDENDUM: It should be noted that the physician's assistant professor of philosophy played an active, integral role throughout this entire operation. By providing expert retraction, they greatly facilitated and expedited safe and effective exposure of the distal femur, proximal tibia and patella for preparation and implantation of the components. They were also actively involved in the patient's positioning, prepping and draping, as well as wound closure. MD MARY PABLO/denisa /[id number] d: 05/21/17 1421 t: 06/03/17 0751, OPERATIVE SUMMARY
--- NOTE | ~2017-04-26 | HP ---
PATIENT'S NAME: CHEVY MARTIN V [facility] AGE: 66 Y [address] ROOM: [place] [address] LOCATION: GPCU ADMIT DATE: 04/26/2017 History & Physical DISCHARGE DATE: FAMILY PHYSICIAN: PHYSICIAN, UNKNOWN ATTENDING PHYSICIAN: HENRI BUITRAGO DATE OF SERVICE: CHIEF COMPLAINT: Abdominal pain. HISTORY OF PRESENT ILLNESS: A 66-year-old lady with a past medical history of hypertension, hyperlipidemia, coronary artery disease without any stenting, presented to the local hospital with abdominal pain, nausea, and vomiting which started on April 22. She had abdominal pain, which is located in the center of the abdomen, colicky in nature, present all the time, relieved with defecation, increased with oral intake, associated with nausea and dry heaving, but no episode of vomiting were noted. She also endorsed having diarrhea multiple episodes without any dark or any red stool. She did endorse having fever and chills since Tuesday. She denied any chest pain, any shortness of breath, but did endorse having some sputum production. No burning on urination. No extremity swelling. No PND or orthopnea noted. She denied any changes in her eyes, any trouble swallowing, any headache, or any dizziness. In the outside hospital, she was treated for gastroenteritis with Levaquin as well as Flagyl. She was also noted to be hyponatremic as well as hypokalemic which was treated over there. An abdominal x-ray was done, which did not reveal any etiology of abdominal pain. She is transferred here for further medical care. REVIEW OF SYSTEMS: All other systems were reviewed and were negative except as mentioned in the HPI. ALLERGIES: THE PATIENT IS ALLERGIC TO LATEX. PAST MEDICAL HISTORY: Hypothyroidism, hyperlipidemia, hypertension, coronary artery disease without any stenting, and degenerative joint disease. MEDICATIONS: Medications are being reconciled right now. PATIENT'S NAME: CHEVY MARTIN V [facility] AGE: 66 Y [address] ROOM: [place] [address] LOCATION: GPCU ADMIT DATE: 04/26/2017 History & Physical DISCHARGE DATE: FAMILY PHYSICIAN: PHYSICIAN, UNKNOWN ATTENDING PHYSICIAN: HENRI BUITRAGO PAST SURGICAL HISTORY: Multiple knee surgeries, hysterectomy as well as cholecystectomy. SOCIAL HISTORY: Never a smoker. No alcohol or drug abuse. FAMILY HISTORY: Her family history is extensive for multiple family members positive for coronary artery disease. PHYSICAL EXAMINATION: VITAL SIGNS: Blood pressure 144/71, 85, 94% on room air, and respiratory rate of 16. GENERAL: In mild acute distress, due to abdominal pain. HEENT: Head: Atraumatic and normocephalic. Eyes: Nonicteric. No pallor. Oropharynx: Dry mucous membranes. CARDIOVASCULAR: S1 and S2. No murmurs, gallops, or rubs. LUNGS: Clear to auscultation bilaterally. ABDOMEN: Soft, tender in the hypogastrium as well as in the umbilical region. Bowel sounds are present. EXTREMITIES: No clubbing, cyanosis, or edema. PSYCHIATRIC: Normal affect, mood, and speech. NEUROLOGIC: Cranial nerves 2 through 12 intact. No motor or sensory deficit noted. MUSCULOSKELETAL: Left knee swelling, tenderness and erythema LABORATORY DATA: Lab work from the outside facility showed white count of 11.3 today, hemoglobin of 10, and platelets of 144. Sodium of 130, potassium of 2.6, chloride 97, bicarb 22, glucose 187, creatinine 1.3, calcium of 8.5, total protein of 6.2, and albumin 2.4. C-reactive protein of 25. ASSESSMENT AND PLAN: Septic Arthritis: Aspiration of pus by orthopedics. I&D in am. Vancomycin and ceftriaxone in interim. Abdominal pain with unknown etiology. At this point, we are going to work this up with all the broad differentials. We will get a CBC, CMP, lipase, and amylase level. To rule out any infectious cause of this enteritis, we will get the stool ova and parasites, leukocytes as well as C. diff assay. I will get a CAT scan of the abdomen with the IV contrast to delineate the etiology of this abdominal pain at this point. We will get a chest x-ray as well. Urinalysis and cultures will be ordered as well. Further management will depend on the lab work and the patient's condition. We will start her on some IV antibiotics at this point, with the Zosyn and we will monitor her lactic acid and procalcitonin levels. Essential hypertension. We will continue to monitor at this point, and start home dose of medications if needed. PATIENT'S NAME: MARTIN, CHEVY V [facility] AGE: 66 Y [address] ROOM: [address] [place], [place] [address] [facility] ADMIT DATE: 04/26/2017 History & Physical DISCHARGE DATE: FAMILY PHYSICIAN: PHYSICIAN, UNKNOWN ATTENDING PHYSICIAN: HENRI BUITRAGO Hyperlipidemia. We will observe at this point. Hyponatremia. I believe this is secondary to hypervolemia and we will treat her aggressively with the IV fluids and continue to monitor. Continue to monitor I and Os. Hypokalemia, was being treated at the outside hospital. We will recheck the potassium and we will replace as needed. Deep vein thrombosis prophylaxis with Lovenox. The patient is full code. MD FIDEL SOLORZANO/denisa /[id number] D: [id number] T: [id number] HISTORY & PHYSICAL
--- NOTE | ~2017-04-26 | OR ---
PATIENT'S NAME: CHEVY CARRENO [facility] AGE: 66 Y [address] ROOM: [address] [place], [place] [address] LOCATION: [facility] ADMIT DATE: 04/26/2017 OR/Procedure Report DISCHARGE DATE: FAMILY PHYSICIAN: Nicole Anguiano MD ATTENDING PHYSICIAN: HENRI BUITRAGO SURGEON: Aldo Julian MD [employer] EQUIPMENT OPERATOR: Aldo Conley. DATE OF PROCEDURE: 05/01/2017 PREOPERATIVE DIAGNOSES: 1. Wound dehiscence, left knee. 2. Status post irrigation and debridement of left knee periprosthetic infection. 3. Well-fixed segmental distal femoral and proximal tibial replacements with long cemented tibial and femoral stem. POSTOPERATIVE DIAGNOSES: 1. Wound dehiscence, left knee. 2. Status post irrigation and debridement of left knee periprosthetic infection. 3. Well-fixed segmental distal femoral and proximal tibial replacements with long cemented tibial and femoral stem. PROCEDURE PERFORMED: Secondary irrigation and debridement of left knee (including debridement of skin and previously placed antibiotic impregnated beads) with placement of new antibiotic impregnated calcium sulfate beads. ANESTHESIA: General endotracheal anesthesia. ESTIMATED BLOOD LOSS: Less than 20 mL. DRAINS: None. SPECIMEN: Synovial fluid for culture. IMPLANTS: Stimulan antibiotic impregnated calcium sulfate beads (30 mL containing a total of 3 g of vancomycin and 3.6 g of tobramycin). COMPLICATIONS: None. INDICATION FOR PROCEDURE: Ms. Carreno is a 66-year-old female upon whom I performed an irrigation and debridement of a periprosthetic left knee infection last week. She has severely compromised distal femoral and proximal tibial bone stock from multiple previous revisions (including a previous 2- stage revision for previous infection). She has associated compromised fascia PATIENT'S NAME: CHEVY CARRENO [facility] AGE: 66 Y [address] ROOM: [address] [place], [place] [address] LOCATION: [facility] ADMIT DATE: 04/26/2017 OR/Procedure Report DISCHARGE DATE: FAMILY PHYSICIAN: Nicole Anguiano MD ATTENDING PHYSICIAN: HENRI BUITRAGO at the distal half of her wound. Every effort has been made to retain her components based upon the fact that she has a segmental replacement of the distal femur and proximal tibia (removal of which would most likely not be amenable to repeat reconstruction). Cultures from the irrigation and debridement last week have demonstrated methicillin-resistant Staphylococcus aureus. Risks, benefits, limitations, and alternatives to this procedure have been thoroughly reviewed with the patient. She understands the prosthesis removal may need to be considered probably we have reviewed the fact that above knee amputation may still be necessary. We discussed the potential for persistent and/or recurrent infection, neurovascular complications, blood transfusion risks, deep venous thrombosis, pulmonary embolism, mortality, and potential need for further surgery. Informed consent was granted. DESCRIPTION OF PROCEDURE: The patient was positioned supine after administration of general endotracheal anesthesia. Prophylactic antibiotics were administered. A well-padded pneumatic tourniquet was placed around the left proximal thigh. The left lower extremity was prepped and draped with vigilant sterile technique. Inspection of the wound demonstrated that the distal one-third of the incision had dehisced to a maximum width of 2 cm. Antibiotic impregnated calcium sulfate pellets filled this defect. There was no active drainage. There was no malodor. There was no purulence. The previously placed subcuticular Monocryl suture was noted to have ruptured at its midpoint and multiple loops of subcutaneous simple interrupted 0 PDS sutures were noted to have torn through soft tissues (the sutures themselves had not ruptured). The appearance of the wound was consistent with a mechanical dehiscence (as if the knee had flexed despite our instructions to the contrary). Once again, the deficiency in the fascia at the distal half of the incision was evidenced and the prosthesis was visible after removal of the exposed subcutaneous calcium sulfate beads. The remainder of the sutures (throughout the proximal half of the incision) were removed. The joint space was thoroughly irrigated with 6 L of sterile saline containing bacitracin using pulsatile lavage. All previously placed antibiotic impregnated beads were removed. Skin margins were sharply debrided. There was no purulence, 1 L of Bactisure was irrigated through the wound followed by an additional 3 L of sterile saline. PATIENT'S NAME: CHEVY CARRENO V [facility] AGE: 66 Y [address] ROOM: [address] [address] LOCATION: [facility] ADMIT DATE: 04/26/2017 OR/Procedure Report DISCHARGE DATE: FAMILY PHYSICIAN: Nicole Anguiano MD ATTENDING PHYSICIAN: KHALID,ÁLVAREZ A A 30 mL of Stimulan beads were placed around the prosthesis. The deep layers were reapproximated with #2 PDS suture. Skin was reapproximated with superficial buried interrupted 0 PDS followed by horizontal mattress interrupted 2-0 nylon. Dermabond was placed. The dressing consisted of Mepilex followed by ABD pads, followed by a compressive Cheng wrap followed by a knee immobilizer. There were no complications. MD MARY PABLO/denisa /[id number] d: 05/02/17 0737 t: 05/11/17 1745, OPERATIVE SUMMARY
--- NOTE | ~2017-04-26 | OR ---
PATIENT'S NAME: CARRENO, [facility] AGE: 66 Y [address] ROOM: [place] [address] LOCATION: [facility] ADMIT DATE: 04/26/2017 OR/Procedure Report DISCHARGE DATE: FAMILY PHYSICIAN: Nicole Anguiano MD ATTENDING PHYSICIAN: HENRI BUITRAGO SURGEON: Aldo Julian MD MAPPING PILOT: 1. MELANIE Greenberg. 2. Phill Caballero CST/SUPERVISOR FURNACE PROCESS. DATE OF PROCEDURE: 04/27/2017 PREOPERATIVE DIAGNOSES: 1. 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 2. Acute periprosthetic infection of revision left total knee arthroplasty. 3. Recent urinary tract infection. 4. Recent gastroenteritis. 5. 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 POSTOPERATIVE DIAGNOSES: 1. 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 2. Acute periprosthetic infection of revision left total knee arthroplasty. 3. Recent urinary tract infection. 4. Recent gastroenteritis. 5. 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 PROCEDURES PERFORMED: 1. Irrigation and debridement of left knee. 2. Revision left total knee arthroplasty (revision of entire femoral component (except for femoral stem)). 3. Revision of tibial polyethylene insert and rotating hinge linkage and bushing. 4. Extensive synovectomy. 5. Placement of antibiotic-impregnated calcium sulfate beads. ANESTHESIA: General endotracheal anesthesia plus subcutaneous local anesthesia. DRAINS: None. SPECIMENS: None. COMPLICATIONS: None. PATIENT'S NAME: [facility] AGE: 66 Y [address] ROOM: [place] [address] LOCATION: [facility] ADMIT DATE: 04/26/2017 OR/Procedure Report DISCHARGE DATE: FAMILY PHYSICIAN: Nicole Anguiano MD ATTENDING PHYSICIAN: HENRI BUITRAGO IMPLANTS: Myranda segmental size C distal femoral component (XT size C left component and XT polyethylene insert). 12 mm size C segmental articular surface with hinge post. Myranda rotating hinge size C XT polyethylene insert. Two batches of Stimulan beads (with a total of 2 g of vancomycin and 2.4 g of tobramycin). EXPLANTS: Distal femoral segment component, tibial polyethylene insert and hinge post, and femoral polyethylene insert. INDICATION FOR PROCEDURE: Ms. Carreno is a 66-year-old female upon whom I performed a complex revision left total knee arthroplasty approximately one year ago. The patient had previously undergone 4 failed previous left knee replacements (all of which were performed elsewhere). Her most recent revision left total knee arthroplasty (prior to the revision that I performed for her last year) had been a 2-stage exchange revision for infection. Cultures were negative at the time of the revision that I performed last year. A segmental proximal tibial and distal femoral hinge component was required due to severe distal femoral and proximal tibial bone loss. The patient had done extremely well until experiencing a sudden "pop" and resultant hyperextension of her left knee one month ago. She had been scheduled to undergo exchange of her femoral polyethylene hinge post component (the putative source of her acute onset of hyperextension). However, in the interim, she has developed gastroenteritis and urinary tract infection with secondary acute onset of severe left knee pain and swelling. Her knee had been virtually pain-free when she presented with fracture of her femoral polyethylene component. She has long cemented tibial and femoral stems (which would be extremely difficult to extract without significant compromise of her already severely compromised residual tibial and femoral bone stock). Due to the acuity of infection (presumably hematogenous dissemination) and the complexity that would be associated with extraction of her components), we have reached a mutual decision to attempt to salvage her prosthesis. Risks, benefits, limitations, and alternatives to this procedure have been thoroughly reviewed, and informed consent granted. Aspiration of the left knee on the day prior to this procedure has demonstrated numerous white blood cells and gram-positive cocci. We reviewed risks and implications of infection, deep venous thrombosis, pulmonary embolism, mortality, persistent and/or recurrent infection, neurovascular compromise, blood transfusion risks, and the fact that extraction of her components (and prep and potential above-knee amputation) may need to be considered if suppression of this infection is unsuccessful. Informed consent granted. DESCRIPTION OF PROCEDURE: The patient was positioned supine. General endotracheal anesthesia and prophylactic antibiotics were administered. A well-padded pneumatic tourniquet was placed around her left proximal thigh. PATIENT'S NAME: CHEVY CARRENO V [facility] AGE: 66 Y [address] ROOM: [id number] [place], [place] [id number] LOCATION: [facility] ADMIT DATE: 04/26/2017 OR/Procedure Report DISCHARGE DATE: FAMILY PHYSICIAN: Nicole Anguiano MD ATTENDING PHYSICIAN: HENRI BUITRAGO Her left lower extremity was prepped and draped with vigilant sterile technique. Examination under anesthesia demonstrated a well-healed midline scar. There was approximately 15 degrees of recurvatum. There was no varus or valgus instability. There were no active skin lesions. There was a large amount of subcutaneous fluctuance and a very large effusion. The left lower extremity was elevated for 3 minutes to exsanguinate the leg prior to inflation of the tourniquet. An Esmarch wrap was not utilized (only gravity was utilized to exsanguinate the limb). A longitudinal midline incision was made within the preexisting longitudinal midline scar. An abundant amount of subcutaneous purulent material was encountered at the distal portion of the incision. The underlying fascia had dehisced. This was the region where the underlying fascia was significantly attenuated at the time of the patient's previous incision. The tibial tubercle fragment was noted to have dislodged from the anterior aspect of the segmental proximal tibial replacement (consistent with the preoperative radiographic deterioration that had occurred over the past month). There were multiple ruptured #5 Ethibond sutures adherent to the tibial tubercle fragment. These were all removed. Several 100 mL of purulent material were evacuated from the joint space. The polyethylene portion of the femoral hinge post was confirmed to be fractured (as had been suspected preoperatively). This was confirmed to be the source of the patient's recent onset of recurvatum. The femoral component was removed from the well-fixed femoral stem with the femoral component extraction device. The tibial polyethylene insert was removed. The hinge post was removed. This facilitated access to the entire joint space. The joint space was irrigated with 6 L of bacteriostatic pulsatile saline lavage (containing bacitracin), followed by 1 L of Bactisure, followed by an additional liter of sterile saline with bacitracin. At this point, the surgical team replaced their gloves, and the limb was draped with a new extremity drape. It should be noted that a medial arthrotomy had been performed. The patellar component was also confirmed to be well fixed and well aligned. An extensive synovectomy had been performed prior to redraping as well. A new femoral component was impacted into position, and the new tibial polyethylene insert was placed. A new femoral polyethylene bushing and hinge post were placed, and the femoral axle was deployed with the torque-limiting wrench. The components were reduced. There was no residual recurvatum. Patellar tracking was appropriate. The joint space and new components were irrigated with an additional liter of Bactisure followed by an additional 2 L of sterile saline with bacitracin. The arthrotomy was closed with multiple simple interrupted #1 PDS suture. Subcutaneous tissues were re-irrigated. Subcutaneous tissues were PATIENT'S NAME: CHEVY CARRENO V [facility] AGE: 66 Y [address] ROOM: [place] [address] LOCATION: [facility] ADMIT DATE: 04/26/2017 OR/Procedure Report DISCHARGE DATE: FAMILY PHYSICIAN: Nicole Anguiano MD ATTENDING PHYSICIAN: HENRI BUITRAGO reapproximated with simple deep interrupted 0 PDS suture. The skin was closed with a running subcuticular 3-0 Monocryl suture, followed by Dermabond, followed by Steri-Strips with benzoin. The dressing consisted of a Mepilex dressing. A knee immobilizer was placed. The patient was extubated and transported to the postanesthesia care unit in stable, comfortable condition. She was confirmed to be neurovascularly intact in the recovery room. It should be noted that 2 separate batches of Stimulan beads had been fabricated, and these were placed within the joint space surrounding the tibial and femoral components prior to closure of the arthrotomy. Each of the Stimulan bead batches contained 1 g of vancomycin and 1.2 g of tobramycin. An additional 1 g of vancomycin powder was placed intra-articularly as well. MD MARY PABLO/denisa /[id number] d: 04/28/17 1632 t: 05/01/17 2147, OPERATIVE SUMMARY
[~2017-04-26 13:29] MED LIST changes: -APRESOLINE25 MG PO; -DRISDOL 5050000 UNIT PO; -DURICEF (NON-500 MG PO; -GLUCOPHAGE500 MG PO; -K-TAB ER20 MEQ PO; -LYRICA 75MG CAP75 MG PO; -RIFADIN, RIMAC300 MG PO; -ZOFRAN4 MG PO
--- NOTE | 2017-04-26 13:40 | NUR ---
PATIENT ADMITTED FROM THE [facility] VIA EMS AND DIRECT ADMIT WITH POSSIBLE GASTRITIS AND N/V/D FOR THE PAST 4 DAYS. PATIENT LIVES IN [place], [place] AND HAD BEGAN TO NOT FEEL WELL ON TUESDAY WITH N/V AND ABDOMINAL PAIN. PATIENT STATES THAT BY TUESDAY SHE "WAS FEELING HORRIBLE" AND HAD HER DAUGHTER BRING HER TO [place] WHERE SHE WAS ADMITTED AND STARTED ON IV ABX. SHE ALSO HAD LT)KNEE PAIN THAT DEVELOPED OVER THE WEEKEND AND ON ADMIT TO PCU STATES THAT SHE HAS NOT BEEN ABLE TO AMBULATE ON IT FOR THE PAST FEW DAYS DUE TO THE PAIN AND SWELLING. WAS SCHEDULED TO HAVE A REVISION TO LT)KNEE WITH DR. BOJORQUEZ ON Tuesday04/29/17. DR. BUITRAGO ADMITTING. PATIENT IS A POOR HISTORIAN AT TIMES WITH NURSING STAFF RECALLING EVENTS OVER WEEKEND DURING ADMISSION PROCESS (STATES SHE JUST FEELS TOO ILL TO THINK ABOUT IT), BUT REMAINS A/O X3.
[2017-04-26 15:44] LABS: HEMATOCRIT 32.1 % (33.0-46.0); HEMOGLOBIN 10.7 g/dL (10.0-15.0); MCH 27.3 pg (27.0-34.0); MCHC 33.3 gm/dL (32.0-36.5); MCV 81.9 fl (83.0-98.0); MPV 11.5 fl (9.4-12.4); PLATELET COUNT 183 K/uL (150-450); RBC 3.92 M/uL (3.50-5.50); RDW-CV 14.6 % (11.9-14.6); WBC 10.5 K/uL (4.0-11.0)
[2017-04-26 16:03] LABS: ALBUMIN 2.1 gm/dL (3.5-5.0); ANION GAP 11.6 (10.0-19.0); CALCIUM 8.1 mg/dL (8.5-10.5); CREATININE 1.1 mg/dL (0.5-1.1); TOTAL BILIRUBIN 0.8 mg/dL (0.0-1.5)
[2017-04-26 16:09] LABS: POTASSIUM 2.6 mMol/L (3.7-5.1)
[2017-04-26 16:18] LABS: ABSOLUTE NEUTROPHIL CT (ANC) 8.6 K/uL (1.8-7.8); BANDED NEUTROPHIL # 1.3 K/uL (0.0-0.1); BANDED NEUTROPHILS % 12 %; LYMPHOCYTE # 0.9 K/uL (0.8-4.0); LYMPHOCYTE % 9 %; MONOCYTE # 0.9 K/uL (0.0-1.0); SEGMENTED NEUTROPHIL # 7.4 K/uL (1.8-7.8); SEGMENTED NEUTROPHIL % 70 %
[2017-04-26 17:44] LABS: BILIRUBIN URINE NEGATIVE (NEGATIVE); BLOOD URINE 250 /UL (NEGATIVE); GLUCOSE URINE 50 mg/dL (NEGATIVE); KETONE URINE 5 mg/dL (NEGATIVE); LEUKOCYTES URINE 25 /UL (NEGATIVE); NITRITE URINE NEGATIVE (NEGATIVE); PROTEIN URINE 100 mg/dL (NEGATIVE); TURBIDITY URINE 1+ (CLEAR); UROBILINOGEN URINE NORMAL (NORMAL)
[2017-04-26 17:47] LABS: COLOR URINE AMBER (YELLOW)
[2017-04-26 17:49] LABS: WBC URINE RARE #/HPF (NEGATIVE)
[2017-04-26 17:50] LABS: AMORPHOUS URINE 2+ (NEGATIVE); BACTERIA URINE NEGATIVE (NEGATIVE); EPITHELIAL URINE 0-2 #/HPF (NEGATIVE)
--- NOTE | 2017-04-26 19:14 | NUR ---
INSERTED A LATEX-FREE CATHETER.
[2017-04-27 04:42] LABS: HEMATOCRIT 31.5 % (33.0-46.0); HEMOGLOBIN 10.6 g/dL (10.0-15.0); MCH 27.3 pg (27.0-34.0); MCHC 33.7 gm/dL (32.0-36.5); MCV 81.2 fl (83.0-98.0); PLATELET COUNT 219 K/uL (150-450); RBC 3.88 M/uL (3.50-5.50); RDW-CV 14.8 % (11.9-14.6); WBC 11.8 K/uL (4.0-11.0)
--- NOTE | 2017-04-27 05:04 | NUR ---
Significant Event: Patient A/Ox3. VSS on RA. Patient is not reporting pain in her left knee except with movement, but she is still experiencing discomfort. Some nausea this shift, but no emesis. IV antibiotics changed to Rocephin and Vancomycin. 1000ml out of hays catheter. Frequent incontinent stools this shift. Sample sent down for c-diff. Follow up: I&D today with Dr. Julian with possible L) TKA. Permits are signed and on chart.
[2017-04-27 05:10] LABS: TOTAL PROTEIN 5.7 g/dL (6.0-8.4)
[2017-04-27 05:12] LABS: ALBUMIN 1.9 gm/dL (3.5-5.0); TOTAL BILIRUBIN 0.6 mg/dL (0.0-1.5)
[2017-04-27 05:37] LABS: ABSOLUTE NEUTROPHIL CT (ANC) 10.5 K/uL (1.8-7.8); BANDED NEUTROPHIL # 2.8 K/uL (0.0-0.1); BANDED NEUTROPHILS % 24 %; LYMPHOCYTE # 0.6 K/uL (0.8-4.0); LYMPHOCYTE % 5 %; MONOCYTE # 0.7 K/uL (0.0-1.0); SEGMENTED NEUTROPHIL # 7.7 K/uL (1.8-7.8); SEGMENTED NEUTROPHIL % 65 %
--- NOTE | 2017-04-27 16:42 | NUR ---
Significant Event: patient up to floor at 1045 from PACU. Dressing to l) knee c/d/i, l) knee immobilizer in place and to be on at all times. CSM assessments to l) lower extremity wnl. ambulates to bathroom and up to chair with 1 assist, with use of walker/gait belt, WBAT. EZ wrap to l) knee. knee high carlos hose to r) leg, and bilateral foot pumps on. rates l) knee pain 2 on pain scale, received tramadol at 1536. patient to have picc consult. also, patient to have ID consult, but ID doctor only comes last 2 weeks of month, Paulo NAVARRO notified. saúl patent. k+ 2.9, KCL 60meq iv started and po kcl given. to have k+ level drawn when IV K+ done and call results to Dr. Brewer patient is alert and oriented x3. incentive spirometer encouraged up to 1000. family supportive. iv patent to r) posterior forearm. Follow up:
--- NOTE | 2017-04-27 17:15 | NUR ---
D: PATIENT TRANSFER TO [address] [place] [address], VIA BED AND 2 ASSIST. REPORT GIVEN TO VICENTE GEORGE. SEE TRANSFER NOTE. PATIENT ON TELEMETRY.
--- NOTE | 2017-04-28 03:50 | NUR ---
Significant Event: A/O X 3. DRSGS TO LEFT KNEE DRY-INTACT. EZ-WRAPS ON. LEFT KNEE IMMOBILIZER IN PLACE TO LEFT KNEE. AND TO BE ON AT ALL TIMES. CSM TO LOWER EXTREMITIES WNL. PATIENT DENIES NUMBNESS-TINGLING. PEDAL PULSES PRESENT. TOES WARM-BLANCHING PRESENT. WIGGLES TOES. ASSISTED TO BEDSIDE COMMODE 1-2 ASSIST. HAD LARGE LOOSE BM AND FLATUS. ASSISTED TO BR HAD ANOTHER LARGE LOOSE BM. GANDHI CATHETER PATENT. ENCOURAGE PATIENT TO DRINK MORE FLUIDS. NO NAUSEA. FLACA HOSE OFF RIGHT LEG AND BILATERAL FOOT PUMPS ON FEET. UNABLE TO GET PICC LINE IN AT SHIFT CHANGE, WILL TRY AGAIN TODAY. ATB THERAPY. MINIMAL PAIN RATE 1. LOPRESSOR 12.5 MG HELD FOR BP 110/59, HR 76. PARAMETORS FOR BP. INCENTIVE SPIROMETER USAGE 1250. IV PATENT TO RIGHT POSTERIOR FOREARM. UP WITH GAITBELT AND WALKER ASSISTED. ID DOCTOR DANAY NOTIFED OF ID CONSULT. HE COMES ONLY THE LAST 2 WEEKS OF THE MONTH. Follow up:
[2017-04-28 04:58] LABS: HEMATOCRIT 28.3 % (33.0-46.0); HEMOGLOBIN 9.4 g/dL (10.0-15.0); MCH 27.3 pg (27.0-34.0); MCHC 33.2 gm/dL (32.0-36.5); MCV 82.3 fl (83.0-98.0); PLATELET COUNT 235 K/uL (150-450); RBC 3.44 M/uL (3.50-5.50); RDW-CV 15.6 % (11.9-14.6)
[2017-04-28 05:00] LABS: WBC 17.9 K/uL (4.0-11.0)
[2017-04-28 05:09] LABS: ANION GAP 10.6 (10.0-19.0); CALCIUM 8.1 mg/dL (8.5-10.5); CREATININE 1.2 mg/dL (0.5-1.1); MAGNESIUM 2.3 mg/dL (1.8-2.6); POTASSIUM 3.6 mMol/L (3.7-5.1)
[2017-04-28 06:00] LABS: ABSOLUTE NEUTROPHIL CT (ANC) 16.7 K/uL (1.8-7.8); BANDED NEUTROPHIL # 0.9 K/uL (0.0-0.1); BANDED NEUTROPHILS % 5 %; LYMPHOCYTE # 0.9 K/uL (0.8-4.0); LYMPHOCYTE % 5 %; MONOCYTE # 0.4 K/uL (0.0-1.0); SEGMENTED NEUTROPHIL # 15.8 K/uL (1.8-7.8); SEGMENTED NEUTROPHIL % 88 %
--- NOTE | 2017-04-28 13:12 | NUR ---
PT TAKEN DOWN FOR PICC LINE PLACEMENT.
--- NOTE | 2017-04-28 14:34 | NUR ---
1355, Pt brought to procedure room to place picc. Pt states that she has been having fevers. Lab results were reviewed priorly and her WBC's were noted to be elevated to 17.9 today from 11.8 yesterday. Pt also states that she had blood cultures drawn in [place] 04/22 but due the lab carrier then were not sent out on April 23 so the patient was sent here with them. Our lab was called and they state there was no documentation that they were delivered here. Dr. Brewer was notified about the above information and he wishes to have blood culture results before proceeding with picc placement. He ordered blood cultures x2 to be drawn. Pt was taken to [facility] for transport to her back to her room.
--- NOTE | 2017-04-28 15:41 | NUR ---
Significant Event: PT ALERT AND ORIENTED. UP IN THE ROOM WITH 1 ASSIST TO THE BATHROOM. NO LOOSE BM'S TODAY. IN ISOLATION FOR MRSA IN LT KNEE. IMMOBILIZER ON AT ALL TIMES. MEPILEX DRESSING INTACT. ICE TO KNEE GANDHI CATH REMOVED THIS AFTERNOON AT 1700. WAS NOT ABLE TO DO THE PICC LINE TODAY DUE TO ELEVATED WHITE COUNT. BLOOD CULTURES REDRAWN SINCE OTHERS GOT LOST IN ROUTE TO FACILITY. FAMILY HERE THIS AM. Follow up:
--- NOTE | 2017-04-28 16:30 | NUR ---
SPOKE TO PATIENT REGARDING CM AND OUR ROLE. PATIENT LIVES IN OWN HOME WITH SPOUSE. SHE IS HOPING THAT SHE CAN GET IV ANTIBIOTICS AN OUTPT AT THE [facility]. BUT IF SHE NEEDS TO GO TO SHE WOULD LIKE TO GO TO THE [facility] HERE PCP IS. Oksana LEWIS. PRESENTED TO HER THE OPTION OF HOME INFUSION BUT SHE DECLINDED THIS DUE TO THERE COULD BE OUT OF POCKET COST AND SHE TELLS ME THAT THEY CAN NOT AFFORD IT. WILL CONT TO FOLLOW AND ONCE THE PLAN OF WHAT ANTIBIOTICS SHE NEEDS AND THE FREQ HAS BEEN DETERMINED WILL MAKE ARRANGEMENTS THAT WILL BE OF MOST BENEFIT FOR HER.
--- NOTE | 2017-04-29 04:54 | NUR ---
Pt AOx3. 1 ASSIST GBW. Contact Isolation for MRSA OF LEFT KNEE. Immobilizer on left knee at all times. CSMS intact. One bm this shift. Voiding w/o difficulty. Scheduled tylenol controlling pain.
[2017-04-29 05:50] LABS: BASOPHIL % 0.1 %; EOSINOPHIL % 0.2 %; HEMATOCRIT 29.8 % (33.0-46.0); HEMOGLOBIN 9.9 g/dL (10.0-15.0); IMMATURE GRANULOCYTE # 0.5 K/uL (0.0-0.3); IMMATURE GRANULOCYTE % 3.6 %; LYMPHOCYTE # 2.3 K/uL (0.8-4.0); LYMPHOCYTE % 17.6 %; MCH 27.3 pg (27.0-34.0); MCHC 33.2 gm/dL (32.0-36.5); MCV 82.1 fl (83.0-98.0); MONOCYTE # 0.7 K/uL (0.0-1.0); MONOCYTE % 5.5 %; MPV 12.1 fl (9.4-12.4); NEUTROPHIL # (ANC) 9.5 K/uL (1.8-7.8); NRBC % 0 /100WBC (0-0.00); RBC 3.63 M/uL (3.50-5.50); RDW-CV 15.9 % (11.9-14.6)
[2017-04-29 05:56] LABS: PLATELET COUNT 345 K/uL (150-450)
[2017-04-29 06:07] LABS: ANION GAP 11.2 (10.0-19.0); CALCIUM 9.4 mg/dL (8.5-10.5); CREATININE 1.2 mg/dL (0.5-1.1); POTASSIUM 3.2 mMol/L (3.7-5.1)
--- NOTE | 2017-04-29 13:01 | NUR ---
RECEIVED REFERRAL TO [facility] FOR PATIENT TO GO TO [facility] TODAY. PATIENT NEEDS TO HAVE PICC PLACED FOR THE IV VANCO AND THIS CAN NOT BE DONE TO FIRST OF NEXT WEEK THE BC NEED TO BE NEG FOR 48 HOURS. I SPOKE TO CHEVY AND SHE IS IN AGREEMENT TO GOING TO [facility] IN [place]. I SPOKE TO COLLIN AT THE [facility] AND SHE ANTICIPATES THAT THEY CAN ACCEPT PATIENT BUT DO NOT TAKE WEEKEND TRANSFERES. SHE WOULD LIKE FOR ME TO CONTACT HER ON TUESDAY WITH AN UPDATE AND IF PATIENT HAS THE PICC IN PLACE SHE ANTICIPATES THAT THEY CAN ACCEPT PATIENT ON TUESDAY. WILL CONT TO FOLLOW NEEDED.
--- NOTE | 2017-04-29 16:44 | NUR ---
Significant Event: Pt is a/o. Cooperative with cares. Has been up to BR to void, sat in chair. Acewrap/immobilizer to L) leg c/d/i. CSM WNL. Pedal edema. IV fluids started @ 100/hr, had emesis this afternoon. Remains in contact isolation for MRSA. Refuses prn meds for pain. BP elevated. Started on norvasc. 190's/90. Foot pumps and ez wrap. IV ATB cont. Awaiting bld clt results to determine if she can have PICC line. 2 loose stools this shift. Follow up:
--- NOTE | 2017-04-30 04:52 | NUR ---
Significant Event: Alert/oriented x3. Isolation for MRSA of the wound. Mepilex was saturated at 2300, got orders from Dr Julian - Painted with betadine, new Mepilex, reinforced gauze wrap, Cheng wrap. Put foot of bed up using the gatch, 2 pillows. Ambulation only in room. Hold Lovenox. Ice and elevate. VSS. early systolic was 168, rechecked after Lo[pressor - 150. 143 last SBP. 1 assist ambulation. Voided well per bathroom. No complaint of pain. PICC placement possibly Tuesday or Tuesday. IV in right posterior forearm. CSM WNL. Foot pumps on. Immobilizer on at all times. Follow up:
[2017-04-30 05:35] LABS: CALCIUM 9.1 mg/dL (8.5-10.5)
[2017-04-30 05:36] LABS: ANION GAP 10.1 (10.0-19.0); POTASSIUM 3.1 mMol/L (3.7-5.1)
--- NOTE | 2017-04-30 08:46 | NUR ---
PT SCREENED D/T LOS. EST NEEDS: [id number] KCALS, 65-76 GM PROTEIN, 1 ML/KCAL FLUIDS. PT EATING WELL. NO NUTRITION-RELATED DX IDENTIFIED. WILL ASSIST NEEDED.
--- NOTE | 2017-04-30 17:38 | NUR ---
Significant Event: Pt is a/o. Cooperative with cares. Dressing to L) knee remains c/d/i. Immoblizer on @ all times. CSM WNL. foot pumps on. EZ wrap on. Has been up to Br to void about every hour & 15 min. approx 9-10 times this shift. Voids in large amounts. IV is now SL. K is 3.1 Needs to take po KCL, but just had small emesis and refuses meds. Will try later. VSS. Denies c/o pain. Refused tylenol this shift. WBAT. 1 assist, walker and gait belt. 2 loose BM's. Follow up:
[2017-04-30 17:59] LABS: ALBUMIN 1.9 gm/dL (3.5-5.0); ANION GAP 11.9 (10.0-19.0); CALCIUM 9.6 mg/dL (8.5-10.5); MAGNESIUM 1.3 mg/dL (1.8-2.6); TOTAL BILIRUBIN 1.6 mg/dL (0.0-1.5); TOTAL PROTEIN 5.9 g/dL (6.0-8.4)
[2017-04-30 18:00] LABS: POTASSIUM 2.9 mMol/L (3.7-5.1)
[2017-05-01 08:50] LABS: ALK PHOS 108 IU/L (33-138); ALT 20 IU/L (12-78); AST 24 IU/L (10-40); BLOOD UREA NITROGEN 10 mg/dL (6-24); CALCIUM 8.6 mg/dL (8.5-10.5); CHLORIDE 104 mMol/L (96-110); CO2 25 mMol/L (22-32); CREATININE 0.9 mg/dL (0.5-1.1); ESTIMATED GFR (MDRD EQUATION) > 60; MAGNESIUM 1.9 mg/dL (1.8-2.6); SODIUM 138 mMol/L (135-145); TOTAL PROTEIN 5.5 g/dL (6.0-8.4)
[2017-05-01 08:53] LABS: ALBUMIN 1.7 gm/dL (3.5-5.0); ANION GAP 11.9 (10.0-19.0); POTASSIUM 2.9 mMol/L (3.7-5.1)
--- NOTE | 2017-05-01 17:58 | NUR ---
Significant Event: Dressing is clean, dry and intact. CSM WNL. 1 assist with transfers to bathroom. Elevate leg with gatch of bed. Had IV Potassium and IV Magnesium given. Voids without difficulty. Had bowel movement. Denied pain and refused pain medication and Tylenol. Follow up:
--- NOTE | 2017-05-01 18:55 | NUR ---
Significant Event: Pt is a/o. Cooperative with cares. Has amb to BR to void with SBA, walker and gait belt. Has been in bed with knee gatch up, leg elevated on pillows, ez wrap and foot pumps and tedhose on. CSM WNL. Refuses pain medications. k+ was 2.9. Pt was given 60 Meq KCL IV and 40 Meq po. Repeat lab @ 2100, call results. Had small amt drainage noted on chux inside knee immoblizer 1000. Drainage increased to moderate by 1440, Dr Julian was called. He came and changed dressing. Pt had areas that were open in the incision and serous drainage coming from post. incision. New dressings applied per Dr Julian. Pt is NPO for OR tonight for I & D with wound closure. Novasc increased to 10 mg/day. Family notified by patient of OR. No nausea this shift, Remains in contact isolation. Follow up:
[2017-05-02 01:14] LABS: CALCIUM 8.6 mg/dL (8.5-10.5); TOTAL PROTEIN 5.5 g/dL (6.0-8.4)
[2017-05-02 01:18] LABS: ALBUMIN 1.7 gm/dL (3.5-5.0); TOTAL BILIRUBIN 0.7 mg/dL (0.0-1.5)
--- NOTE | 2017-05-02 02:20 | NUR ---
LATE ENTRY: 05/01/20172119 PATIENT IS STRAIGHT CATHED PRIOR TO SURGICAL PROCEDURE. 1020 ML OF LIGHT ORANGE URINE WAS OBTAINED. PATIENT HAS STATED RELIEF AT THIS TIME. SHE HAD MADE SEVERAL ATTEMPTS TO VOID ON THE BED MOSS PRIOR TO INSERTION OF CATHETER.
--- NOTE | 2017-05-02 03:49 | NUR ---
Significant Event: From PACU at 0145. Dressing is clean, dry and intact. CSM WNL. CSM WNL. Has a hays catheter. Hypertensive. Gave KCL PO and KCL IV. 1 hour after IV finished check a CBC and BMP. Percocet at 0220. No ice. Remove hays catheter afternoon of POD #3. On telemetry with no calls. Maximally elevate leg. No ROM. WBAT. Bedrest with bathroom priveleges. Follow up:
[2017-05-02 08:33] LABS: BASOPHIL % 0.1 %; EOSINOPHIL # 0.1 K/uL (0.0-0.5); EOSINOPHIL % 0.5 %; HEMATOCRIT 28.9 % (33.0-46.0); HEMOGLOBIN 9.5 g/dL (10.0-15.0); IMMATURE GRANULOCYTE # 0.9 K/uL (0.0-0.3); IMMATURE GRANULOCYTE % 4.5 %; LYMPHOCYTE # 1.4 K/uL (0.8-4.0); LYMPHOCYTE % 7.6 %; MCH 27.1 pg (27.0-34.0); MCHC 32.9 gm/dL (32.0-36.5); MCV 82.6 fl (83.0-98.0); MONOCYTE # 0.6 K/uL (0.0-1.0); MONOCYTE % 3.2 %; MPV 11.6 fl (9.4-12.4); NEUTROPHIL # (ANC) 15.7 K/uL (1.8-7.8); NEUTROPHIL % 84.1 %; NRBC % 0.1 /100WBC (0-0.00); RDW-CV 15.9 % (11.9-14.6)
[2017-05-02 08:35] LABS: PLATELET COUNT 461 K/uL (150-450); WBC 18.7 K/uL (4.0-11.0)
[2017-05-02 08:48] LABS: ANION GAP 11.3 (10.0-19.0); CALCIUM 8.7 mg/dL (8.5-10.5); CREATININE 1.1 mg/dL (0.5-1.1); POTASSIUM 3.3 mMol/L (3.7-5.1)
--- NOTE | 2017-05-02 12:11 | NUR ---
NOTIFIED THE SB CORDNATOR AT [facility] TO GIVE UPDATE HAD TO LEAVE A MESSAGE FOR HER TO CONTACT ME.
--- NOTE | 2017-05-02 13:20 | NUR ---
RECEIVED CALL FROM COLLIN GONZALEZ AT THE [facility]. SHE TELLS ME THAT THE SOONEST THAT THEY CAN ACCEPT PATIENT IS ON TUE. SHE WOULD LIKE FOR ME TO FAX INFO TO HER SHE WILL REVIEW IT AND GET BACK TO ME. INFO FAXED TO ([phone])
--- NOTE | 2017-05-02 18:02 | NUR ---
Significant Event:VSS, rates pain 3-7/10. Percocet 1 tab with scheduled Tylenol at 1215. Reports relief. L knee immobilizer on, nimesh wrap appears C/D/I. Toes warm, wiggle, pulses +2. D51/2 20 KCl infusing well in R PICC line. Pt received oral K+ 40meq po x 1 today. Pt had only Ensure/nima crackers for breakfast, lunch. NPO since 1350 for I/D tonight. No permit written/ordered yet. Traore intact, to be removed on 3rd post op day. Pt had 2 extra lg BM's soft. Follow up:Monitor, I/D tonight.
[2017-05-03 04:22] LABS: ANION GAP 9.3 (10.0-19.0); BLOOD UREA NITROGEN 8 mg/dL (6-24); CALCIUM 8.9 mg/dL (8.5-10.5); CHLORIDE 98 mMol/L (96-110); CO2 33 mMol/L (22-32); CREATININE 0.9 mg/dL (0.5-1.1); MAGNESIUM 1.5 mg/dL (1.8-2.6); POTASSIUM 3.3 mMol/L (3.7-5.1); SODIUM 137 mMol/L (135-145)
[2017-05-03 04:23] LABS: ESTIMATED GFR (MDRD EQUATION) > 60
--- NOTE | 2017-05-03 04:36 | NUR ---
Patient alert and oriented x3, very pleasant and cooperative, immobilizer in place to left leg, dressing clean dry and intact, leg to be elevated at all times, csm with in normal limits, is on bedrest with bathroom privilages has a hays, Picc line in place to upper right arm, IV antibiotics, taking percocet for pain control, NPO since midnight to have I&D done today
--- NOTE | 2017-05-03 11:17 | NUR ---
RECEIVED CALL FROM YUMIKO AT THE [facility], SHE ANTICIPATES THAT THEY WILL BE ABLE TO ACCEPT PATIENT ONCE SHE IS READY FOR DISCHARGE. SHE INFORMS ME THAT PATIENT WILL NEED TO BRING HER OWN LACTINEX AND RIFADIN THEY DO HAVE THESE MEDS. AT THEIR FACILITY.
--- NOTE | 2017-05-03 19:28 | NUR ---
Significant Event:VSS, rates pain 2-5/10. Percocet and Tylenol for pain. Pt went to [facility], and knee examined per Dr. Julian. No I/D completed today. Pt returned to unit in stable condition. Acewrap/immobilizer on to L leg. Pedal pulses +2, NV intact. FOB elevated per order, ice to knee for additional comfort. Pt tx to commode with assist of 2. Two small amounts of loose BM. Traore intact. PICC line to R upper arm, flushes well. Pt received K+60meq IV bolus, completed at 1730. Follow up:Monitor
--- NOTE | 2017-05-04 04:18 | NUR ---
Patient is alert and orient x3, csm with in normal limits, has immobilizer in place to left leg, transfers one assist with walker and gaitbelt to commode only, pain has been under control, has IV antibiotics, ice to knee, picc line in right upper arm, dressing clean dry and intact, VSS stable has rested well
[2017-05-04 06:23] LABS: ANION GAP 10.5 (10.0-19.0); CALCIUM 9.5 mg/dL (8.5-10.5); MAGNESIUM 1.5 mg/dL (1.8-2.6); POTASSIUM 3.5 mMol/L (3.7-5.1)
[2017-05-04 06:32] LABS: BASOPHIL % 0.1 %; EOSINOPHIL # 0.3 K/uL (0.0-0.5); EOSINOPHIL % 2.4 %; HEMATOCRIT 24.5 % (33.0-46.0); IMMATURE GRANULOCYTE # 0.1 K/uL (0.0-0.3); IMMATURE GRANULOCYTE % 1.3 %; LYMPHOCYTE # 1.7 K/uL (0.8-4.0); LYMPHOCYTE % 15.7 %; MCV 84.5 fl (83.0-98.0); MONOCYTE # 0.6 K/uL (0.0-1.0); MONOCYTE % 5.7 %; MPV 11.9 fl (9.4-12.4); NEUTROPHIL # (ANC) 8.1 K/uL (1.8-7.8); NEUTROPHIL % 74.8 %; NRBC % 0 /100WBC (0-0.00); RDW-CV 16.2 % (11.9-14.6); WBC 10.9 K/uL (4.0-11.0)
[2017-05-04 06:34] LABS: HEMOGLOBIN 7.9 g/dL (10.0-15.0); MCH 27.2 pg (27.0-34.0); MCHC 32.2 gm/dL (32.0-36.5); PLATELET COUNT 327 K/uL (150-450)
--- NOTE | 2017-05-04 10:17 | NUR ---
RECEIVED REFERRAL THAT PATIENT MAY BE READY FOR TRASNFERE TOMORROW. ATTEMPTED TO UPDATE COLLIN BUT HAD TO LEAVE MESSAGE FOR HER TO CONTACT ME.
--- NOTE | 2017-05-04 10:25 | NUR ---
SPOKE TO PATIENT AND UPDATED HER THAT THERE IS POSSIBLITY SHE WILL BE READY FOR TRANSFERE TO THE IN [place] TOMORROW. SHE IS PLANNING ON HAVING HER SPOUSE TRANSPORT HER. HE WILL BE HERE AT 1100 AM
--- NOTE | 2017-05-04 16:06 | NUR ---
SPOKE TO COLLIN AT THE [facility] AND GAVE UPDATE ON PATIENT. SHE REPORTS THAT IF PATIENT DOES NOT COME TOMORROW THAN IT WILL HAVE TO BE TUESDAY THE PCP IS NOT THERE ON THE WEEKEND AND THEY "ONLY HAVE LOCUMES" AND SHE VOICES CONCERNS ABOUT THIS. UPDATED BRIDGETTE NAVARRO WITH DR. SKINNER
--- NOTE | 2017-05-04 16:30 | NUR ---
IMMOBILIZER REMAINS ON. ICE TO KNEE. DRESSING C/D/I. CSM WNL. HAD 1 LARGE LIQUID STOOL THIS MORNING. NEED TO HEMATEST STOOLS. NO STOOLS SINCE ORDER HGB 7.9. GANDHI PATENT. PICC LINE TO RIGHT ARM. TELE ON WITH NO CALLS TODAY. RUNNING IV MAG SULFATE AND k+ RIGHT NOW. VERY COOPERATIVE WITH CARES. REMAINS IN ISOLATION FOR MRSA.
--- NOTE | 2017-05-04 17:00 | NUR ---
SPOKE TO JOSE NAVARRO WITH DR. BOJORQUEZ UPDATED HER THAT ON THE DISCHARGE PLAN FO CHEVY AND SHORTLY AFTER THAT I RECEIVED CALL FROM DR. BOJORQUEZ THAT HE DOES NOT WANT PATIENT TO GO TO [facility] IN [place] THAT HE WOULD LIKE FOR HER TO BE PLACED AT A SNF CLOSER TO HIM HE WANTS TO MONITOR HER KNEE AND FEELS THAT SHE IS " TOO FAR AWAY" FOR HIM BEING ABLE TO MONTIOR HER KNEE CLOSELY IF SHE IS IN [place]. HE TELLS ME HE WILL EXPLAIN THIS TO CHEVY WHEN HE MAKES ROUNDS. WILL SEE WHAT ANBTIBIOTIC ID RECOMMENDS AND HOPEFULLY CAN FIND SNF IN THE AREA THAT WILL ACCEPT PATIENT.
--- NOTE | 2017-05-05 04:28 | NUR ---
Patient alert and oriented x3, csm with in normal limits, dressing clean dry and intact, had IV vanco this shift, BPs were high at around 0300 systolic was is 180s, notified Vic now has PRN order for hydralize, patient was non-symptomatic and is already on tele, transfers one ankita with the walker and gaitbelt, has rested well
[2017-05-05 06:04] LABS: ANION GAP 12.5 (10.0-19.0); MAGNESIUM 1.9 mg/dL (1.8-2.6); POTASSIUM 3.5 mMol/L (3.7-5.1)
[2017-05-05 06:26] LABS: HEMATOCRIT 26.9 % (33.0-46.0); HEMOGLOBIN 8.5 g/dL (10.0-15.0)
--- NOTE | 2017-05-05 15:05 | NUR ---
Talked with Dr Dsouza and Dr Julian about ID physician recommendations for IV abx q 8 hours and potential for SNF placement in [place] vs swingbed in [place]. Dr Dsouza called ID physician and called me back, could be placed on Daptomycin (too expensive for SNF to accept) or Cefepime 2 grams IV q 12 hours. I called all 4 SNF, [facility] not accepting any IV antibx right now due to odd shoe examiner. [facility] only doing q 24 hour IV antibx right now, and [facility] can do q 12 hours IV antibx. Faxed referral to [facility], they are reviewing and will call me back and let me know if they can accommodate. I did call [facility] and talked with swingbed coordinator and gave her an update, let her know trying to get to SNF in [place] if we can, otherwise they can accept on Tuesday on the IV Cefazolin q 8 hours. If unable to find SNF to accept in [place] and does go to [place], then will talk with pt and spouse about appropriate transport to prevent further stress on leg/knee to Dr Hernandez office for weekly appointments.
--- NOTE | 2017-05-05 16:48 | NUR ---
patient up to [facility] today numerous times. loose stools x 3. voiding since hays removed. coccyx, buttocks reddneed-aloe vesta applied, right buttock has blister like area-aloe vesta applied. groin redness-started on nystatin powder. csm adequate to left leg. nimesh wrap removed and redressed to right leg by MELANIE Joyce, immobilizer intact. telemetry in place. picc line intact right upper arm. nausea off and on today, given phenergan at 1450 with relief. patient has poor appetite, did give ensure this afternoon. bp elevated throughout most of day, given bp meds this am, started on one new medication at 1130. given hydralazine 5 mg iv at 1450 for bp of 191/80. bp at 1625-170/74. Dr. Dsouza aware. possible transfer to [facility] sometime soon.
--- NOTE | 2017-05-05 17:26 | NUR ---
Talked with Araceli with [facility] who came to assess for [facility], cost of Cefepime is not a problem so she will talk to [facility] about referral and let me know if/when they can accept. Won't be tomorrow and they may have to shuffle beds so not sure about Tuesday, if they can accept. Let Dr Dsouza and Dr Julian know.
--- NOTE | 2017-05-06 04:23 | NUR ---
Significant Event: Hypertensive. Dressing is clean, dry and intact. CSM WNL. Voids without difficulty. 2 loose bowel movements. 1 assist. Bedrest with BRP. Telemetry with no calls. Buttocks reddened. R) buttocks reddened area. Refused pain medication. On room air. Immobilizer on at all times. [facility] at some point. Follow up:
[2017-05-06 06:03] LABS: CALCIUM 10.2 mg/dL (8.5-10.5); CREATININE 1.1 mg/dL (0.5-1.1)
[2017-05-06 06:07] LABS: HEMATOCRIT 25.3 % (33.0-46.0); HEMOGLOBIN 8.3 g/dL (10.0-15.0)
--- NOTE | 2017-05-06 13:08 | NUR ---
Araceli from [facility] called and [facility] will accept pt on Tuesday. I let pt know and put note on chart for physician. Will call Tuesday for a time for them to come get pt.
--- NOTE | 2017-05-06 18:59 | NUR ---
Significant Event: Pt is a/o. Cooperative with cares. Has voided on commode and in BR. Sat in chair with L) leg max. elevated. EZ wrap on. Knee gatch elevated on bed. Tylenol for BARRETO @ 1100, denies other pain. Zofran and phenergan for nausea, no emesis. Dr Dsouza notified pt had L) ear pain. Brace on @ all times. PICC R) upper arm. Tele on. Buttocks remain red. 2 loose BM's. Follow up:placement
--- NOTE | 2017-05-07 04:14 | NUR ---
Significant Event: Dressing is clean, dry and intact. CSM WNL. Voids without difficulty. 1 loose bowl movment. Had two doses of PO Potassium. On room air. Denies pain and refused pain medication. Has a PICC with good blood return. Zofran at 2141 for nausea. Hypertensive. Follow up:
[2017-05-07 05:17] LABS: ANION GAP 11.4 (10.0-19.0); CREATININE 1.1 mg/dL (0.5-1.1); POTASSIUM 3.4 mMol/L (3.7-5.1)
[2017-05-07 05:19] LABS: CALCIUM 11.2 mg/dL (8.5-10.5)
--- NOTE | 2017-05-07 09:38 | NUR ---
A-NUTRITION F/U MULTIPLE LOOSE STOOLS. ZOFRAN AND PHENERGAN FOR C/O NAUSEA; NO VOMITING L)KNEE IMMOBILIZER. WT STABLE. LABS: NA 140, K+ 3.4, GLU 151, BUN 11, INDUSTRIAL PROPERTY APPRAISER 1.1, ALB 1.7 DIET RX: REGULAR. PO INTAKE HAS BEEN POOR; REFUSALS-25% FOR THE MOST PART EST NUTR. NEEDS: 2695-2117 KCALS AND 65-76 GM PROTEIN D-AT NUTRITION RISK W/INADEUQUATE ORAL INTAKE R/T ALTERED APPETITE SECONDARY TO ALT. GI FXN AEB INTAKE RECORDS, C/O NAUSEA, LOOSE STOOLS. I-D/T NAUSEA WILL TRY ENSURE CLEAR TID W/MEALS M/E-GOAL: PO INTAKE >/=50% BY DISCHARGE 1)F/U PO INTAKE, SUPPLEMENT, GI, AND POC IN 3-5 DAYS 2)ASSIST NEEDED
[2017-05-07 15:56] LABS: TOTAL PROTEIN 7.2 g/dL (6.0-8.4)
[2017-05-07 15:59] LABS: TOTAL BILIRUBIN 0.5 mg/dL (0.0-1.5)
--- NOTE | 2017-05-07 16:36 | NUR ---
Significant Event:Dressing dry and intact to lt leg, Brace to lt leg. CSM WNL. PICC rt upper arm. Telemetry. Up in chair x1. Up to commode one assist. Zofran 4mg x2 last at 1233. Started on Reglan IVP scheduled. Periarea / buttock red. Follow up:
--- NOTE | 2017-05-08 03:38 | NUR ---
Significant Event: Alert/oriented x3. 2 small non-formed BMs, still need 1 more for hematest. Voided well using bedside commode. Telemetry, no calls. Dressing C/D/I, with ice applied. Dilaudid 0.4 mg IVP at 0153. 1 assist with ambulation. Hydralazine 10 mg IV given for SBP 182, rechecked 55 minutes later, SBP 147. PICC in right upper arm - red port hard to flush, purple flushes great. Zofran 4 mg at 0348 for nausea. Scheduled Reglan IVP. Brace to left leg at all times. CSM WNL. Follow up:
[2017-05-08 05:31] LABS: CREATININE 1.3 mg/dL (0.5-1.1); PHOSPHORUS 3.6 mg/dL (2.5-4.9)
[2017-05-08 05:32] LABS: ALBUMIN 1.9 gm/dL (3.5-5.0); CALCIUM 11.2 mg/dL (8.5-10.5)
--- NOTE | 2017-05-08 16:58 | NUR ---
Significant Event: Double lumen PICC rt upper arm. Both lumens had cathflo. Good blood return at this time to both lumens. . Dressing dry and intact to lt leg. Immobilizer to left leg. Telemetry. Up to commode/ recliner with one assist and walker. Routine tylenol ES for headache. K+ 3.0. KCL 40 meq infusing over 4hrs. Started on hydralazine po TID. Moderate loose BM x4. Follow up:
--- NOTE | 2017-05-09 04:44 | NUR ---
Significant Event: Alert/oriented x3. PICC in right upper arm. Nauseous throughout night - refused Jarred or any antiemetic med. Tried ice chips. Voids per bedside commode, 1 assist. Refused EZ wrap ice. Knee is up on pillows with bed gatch used. Bilateral foot pumps. Hypertensive, Hydralazine IVP. Last SBP 157. Small liquidy BM when she uses commode. 3 voids/ BMs. 1 Void and BM to your credit. Immobilizer on at all times. Tele, no calls. Follow up:
[2017-05-09 05:30] LABS: ALBUMIN 2.1 gm/dL (3.5-5.0); CREATININE 1.4 mg/dL (0.5-1.1); MAGNESIUM 1.9 mg/dL (1.8-2.6); PHOSPHORUS 3.5 mg/dL (2.5-4.9)
[2017-05-09 05:42] LABS: CALCIUM 11.1 mg/dL (8.5-10.5)
[2017-05-09 06:15] LABS: BASOPHIL # 0.1 K/uL (0.0-0.2); BASOPHIL % 0.6 %; EOSINOPHIL # 0.1 K/uL (0.0-0.5); EOSINOPHIL % 1.1 %; HEMATOCRIT 28.2 % (33.0-46.0); HEMOGLOBIN 8.7 g/dL (10.0-15.0); IMMATURE GRANULOCYTE % 0.5 %; LYMPHOCYTE # 1.4 K/uL (0.8-4.0); LYMPHOCYTE % 15.3 %; MCH 26.2 pg (27.0-34.0); MCHC 30.9 gm/dL (32.0-36.5); MCV 84.9 fl (83.0-98.0); MONOCYTE # 0.6 K/uL (0.0-1.0); MONOCYTE % 6.5 %; MPV 11.7 fl (9.4-12.4); NEUTROPHIL # (ANC) 6.7 K/uL (1.8-7.8); NRBC % 0 /100WBC (0-0.00); PLATELET COUNT 351 K/uL (150-450); RBC 3.32 M/uL (3.50-5.50); RDW-CV 16.1 % (11.9-14.6); WBC 8.9 K/uL (4.0-11.0)
--- NOTE | 2017-05-09 10:00 | NUR ---
SPOKE TO DONNY AT [facility] TODAY AND UPDATED HER THAT THE TRANSFERE TO [facility] IS ON HOLD TODAY. SHES TELLS ME THAT THEY WILL ACCEPT PATIENT ONCE SHE IS MEDICALLY STABLE.
--- NOTE | 2017-05-09 13:33 | NUR ---
NUTRITION CONSULT NOTED; RD ALREADY FOLLOWING PATIENT AND NUTRITION INTERVENTIONS PUT IN PLACE (SEE 05/07 RD NOTE). APPLE ENSURE CLEAR CHANGED TO [facility]LA[facility]OR ONLY, PER PT PREFERENCE.
--- NOTE | 2017-05-09 15:03 | NUR ---
PATIENT WILL HAVE AN UPPER GI TOMORROW. NPO AFTER 0600 BREAKFAST EARLIER PLEASE. PATIENT HAS NAUSEA, NO VOMITING. ZOFRAN GIVEN AT 0815. NO STOOLS FOR THIS SHIFT. NEED A REPEAT C DIFF SPECIMEN. BSC. IMMOBILIZER ON LEFT LEG. LEFT KNEE DRESSING D/I. BPS 186 TO 179. GIVEN BP MEDS TODAY. IV FLUIDS RESTARTED, KCL OVER 4 HRS STARTED THIS AFTERNOON. RIGHT BUTTOCK HAS OPEN BLISTER, REDNESS TO BUTTOCKS-APPLIED ALOE VESTA. GROIN RED-NYSTATIN POWDER. WBAT WHEN UP WITH WALKER AND GAIT BELT. EZ WRAP TO LEFT LEG. RIGHT DOUBLE LUMEN PICC LINE. BMP TO BE DRAWN AT 1500. GI CONSULT THIS AM. CSM ADEQUATE TO LEFT LEG. POTASSIUM LEVEL 3.0. PATIENT HAS REFUSED SOME MEDICINE TODAY, DID TAKE BP MEDS. HOSPITALIST AWARE. POOR APPETITE, TAKING SOME BITES OF FOOD AND SOME SIPS OF ENSURE. REFUSED RECLINER TODAY.
[2017-05-09 15:24] LABS: ANION GAP 11.5 (10.0-19.0); CREATININE 1.5 mg/dL (0.5-1.1); POTASSIUM 3.5 mMol/L (3.7-5.1)
[2017-05-09 15:25] LABS: CALCIUM 11.1 mg/dL (8.5-10.5)
--- NOTE | 2017-05-10 05:02 | NUR ---
Significant Event: Alert/oriented x3. NPO at 0600 this morning due for Upper endoscopy with possible biopsy, checklist started, permit not signed. Hypertensive, Hydralazine 10 mg IVP at 1941 - last SBP 162. Pt refused her last 2 scheduled Reglans and other po meds. Did receive Tylenol. Nauseous intermittently. Has IV running into PICC right upper arm, both lumens flush well. Open blister on right buttock, reddened. Nystatin powder to pao area, slightly red. CSM WNL. Dressing C/D/I, to keep raised on pillows, knee gatch in bed. Uses bedside commode. Need a repeat C diff specimen. EZ wrap to left leg. Follow up:
--- NOTE | 2017-05-10 05:24 | NUR ---
Patient complained of a little pain in her left ear- did not see any redness. She said the last time it felt like this Dr Dsouza said she had some fluid built up in her ear. Will attempt to get permit signed before end of shift.
[2017-05-10 05:49] LABS: ANION GAP 13.2 (10.0-19.0); CALCIUM 10.8 mg/dL (8.5-10.5); CREATININE 1.3 mg/dL (0.5-1.1); POTASSIUM 3.2 mMol/L (3.7-5.1)
--- NOTE | 2017-05-10 14:31 | NUR ---
A-NUTRITION F/U PT OUT OF ROOM FOR UPPER ENDOSCOPY W/POSSIBLE BIOPSY. C/O N/V. R)BUTTOCK HAS OPEN BLISTER. LABS: NA 3.2, GLU 162, BUN 15, GAS ANALYST 1.3, ABL 2.0 MEDS: REGLAN, IV FLUIDS, PRN IMMODIUM DIET RX: NPO (FOR PROCEDURE). MIXED MCDONALD ENSURE CLEAR TID. PO INTAKE IS POOR; BITES SINCE LAST F/U EST NUTR NEEDS: 6319-3906 KCALS AND 65-76 GM PROTEIN D-AT NUTRITION RISK W/INADEQUATE ORAL INTAKE R/T ALTERED APPETITE SECONDARY TO ALTERED GI FXN AEB N/V, INTAKE RECORDS. I-1)RESTART MIXED MCDONALD ENSURE CLEAR TID WHEN DIET RESUMES 2)IF N/V DOES NOT IMPROVE, CONSIDER ALTERATE ROUTE OF NUTRITION. M/E-GOAL: PT WILL TOLERATE ORAL DIET WITHOUT N/V BY NEXT F/U 1)F/U PO INTAKE, GI, AND POC IN 2-3 DAYS 2)ASSIST NEEDED
--- NOTE | 2017-05-10 18:37 | NUR ---
patient has been in bed most of day. refused to get up to recliner. ambulated to x 2, c other times. nimesh wrap d/i, knee immoblizer in place. csm adequate. edema noted to left foot. To surgery at 1645 for debridement of incision. had upper GI this afternoon, poor appetite, didn't eat today. sips of fluids only. nausea intermittent. Zofran last at 1400. no diarrhea today. blister to right buttock open-aloe applied. red coccyx buttocks-aloe applied. groin tender and red rash-nystatin applied. right upper arm picc line double lumen intact. telemtery in place. potassium was 3.2-given iv potassium today. has some phleghm-coughing up today. bp remains hypertensive-given bp meds as well as iv hydralazine at 1645 for bp 190/84. patient affect sad and withdrawn.
[2017-05-11 04:48] LABS: ANION GAP 13.4 (10.0-19.0); CALCIUM 10.4 mg/dL (8.5-10.5); CREATININE 1.3 mg/dL (0.5-1.1); POTASSIUM 3.4 mMol/L (3.7-5.1); TOTAL BILIRUBIN 0.4 mg/dL (0.0-1.5); TOTAL PROTEIN 6.7 g/dL (6.0-8.4)
--- NOTE | 2017-05-11 04:51 | NUR ---
Significant Event: Pt A&Ox3. VS stable, remains on RA. Have not had to give PRN hydralazine. No c/o numbness or tingling to LLE. LLE remains in immbolizer, Incision is sutured, glued, ABD, cast wrap, and ELAINA wrap. Ice and elevation to extremity. No c/o nausea on shift. Was able to drink Amy Mist and eat saltines without issues. Regular diet put in, but pt states her sister brought in food that is in the fridge for her. DL PICC FREDDIE, D5 1/2NS w/20K @ 75; int cefepime. Pain adequately controlled. x1 assist with FWW & gb to BSC. Follow up: Continue plan of care.
--- NOTE | 2017-05-11 19:13 | NUR ---
Significant Event: PATIENT ALERT AND ORIENTED X3. CSM ASSESSMENTS TO L) LOWER EXTREMITY WNL. DRESSING C/D/I TO L) KNEE. L) LEG ELEVATED, AND IMMOBILIZER IN PLACE. AMBULATES TO BATHROOM AND UP TO CHAIR WITH 1 ASSIST, USE OF WALKER/GAIT BELT. PAIN WELL CONTROLLED WITH ROUTINE TYLENOL EXTRA STRENGTH 2 TABS GIVEN LAST AT 1726, RATES PAIN 2-1 ON PAIN SCALE. BILATERAL FOOT PUMPS ON AND KNEE HIGH FLACA HOSE TO R) LEG. EZ WRAP TO L) KNEE. ON TELEMETRY WITH NO CALLS. C/O NAUSEA, ZOFRAN IV GIVEN AT 1022 WITH MINIMAL RELIEF. POTASSIUM 3.4, 40 MEQ KCL IV GIVEN. HAS DOUBLE LUMEN PICC, FLUSHES WELL WITH GOOD BLOOD RETURN. PLEASANT AND COOPERATIVE WITH CARES. Follow up:
--- NOTE | 2017-05-12 03:29 | NUR ---
Significant Event:A/O X 3. UP WITH ONE ASSIT TO BR, GAITBELT AND WALKER, VOIDS GOOD AMOUNT. GOOD TOLERANCE BEING UP. MINIMAL AMOUNT OF PAIN, RATING 1. PICC LINE RT UPPER ARM. OUT OF CONTACT ISOLATION. INCENTIVE SPIROMETER USAGE 1000. ACEWRAP WITH KNEE IMMOBILIZER ON LEFT LEG. EZ-WRAP ON. BILATERAL FOOT PUMPS TO FEET. REDNESS TO BUTTOCKS AND COCCYX AREA, ALOE APPLIED. TELEMETRY ON AND NO CALLS. DENIES NUMBNESS OR TINGLING TO LOWER EXTREMITIES. Follow up:
[2017-05-12 06:54] LABS: ANION GAP 10.3 (10.0-19.0); CALCIUM 10.1 mg/dL (8.5-10.5); CREATININE 1.2 mg/dL (0.5-1.1); POTASSIUM 3.3 mMol/L (3.7-5.1)
[2017-05-12 07:28] LABS: BASOPHIL % 0.6 %; EOSINOPHIL # 0.1 K/uL (0.0-0.5); EOSINOPHIL % 2.7 %; HEMATOCRIT 25.5 % (33.0-46.0); IMMATURE GRANULOCYTE % 0.6 %; LYMPHOCYTE # 0.9 K/uL (0.8-4.0); LYMPHOCYTE % 17.6 %; MCH 27.2 pg (27.0-34.0); MCHC 30.6 gm/dL (32.0-36.5); MCV 88.9 fl (83.0-98.0); MONOCYTE # 0.3 K/uL (0.0-1.0); MONOCYTE % 6.5 %; MPV 11.8 fl (9.4-12.4); NEUTROPHIL # (ANC) 3.8 K/uL (1.8-7.8); NRBC % 0 /100WBC (0-0.00); PLATELET COUNT 331 K/uL (150-450); RBC 2.87 M/uL (3.50-5.50); RDW-CV 16.1 % (11.9-14.6); WBC 5.2 K/uL (4.0-11.0)
[2017-05-12 07:30] LABS: HEMOGLOBIN 7.8 g/dL (10.0-15.0)
--- NOTE | 2017-05-12 12:30 | NUR ---
RECEIVED REFERRAL FROM TO [facility] FOR PATIENT TO GO [facility] TOMORROW. I NOTIFIED EDI AT [facility] AND HE WANTS ME TO FAX INFO TO HIM HE WANTS TO REVIEW IT AGAIN AND WILL GET BACK TO ME TO WHETHER OR NOT THEY CAN ACCEPT PATIENT. FAXED INFO TO EDI AT [facility].
--- NOTE | 2017-05-12 16:48 | NUR ---
Significant Event: Up to BR/chair with walker and one assist. Dressing changed to lt leg by . Immobilizer to lt leg. CSM WNL. Double lumen PICC to rt upper arm. Redness to coccyx. Open area rt buttock. Telemetry. Follow up:
--- NOTE | 2017-05-12 17:18 | NUR ---
A - NUTRITION FOLLOW-UP EGD 05/10. PT REPORTED N/V STILL THE SAME TODAY. POSSIBLE D/C TO [facility] TOMORROW. LABS: K+ 3.3, GLU 147, CREA 1.2, ALB 2.0 MEDS: ZOFRAN. REGLAN D/C'D YESTERDAY. DIET: REGULAR W/ ENSURE CLEAR TID. INTAKE 75-100% X3 MEALS YESTERDAY BUT SMALL AMOUNT OF FOOD. HAD GOOD BREAKFAST THIS MORNING, HOMEMADE SOUP FOR LATE LUNCH. SISTER BROUGHT IN FOOD FOR PT. DISLIKES ENSURE CLEAR. WAS DRINKING ENSURE ENLIVE BUT THREW UP ONE TIME AFTER DRINKING IT. AGREED TO TRY IT AGAIN. DISCUSSED LIKES AND DISLIKES. ENCOURAGEMENT GIVEN EST NEEDS: 0179-4173 KCAL, 65-76 GRAMS PROTEIN, FLUID NEEDS: 1ML/KCAL D - INADEQUATE ORAL INTAKE RELATED TO ALTERED GI FUNCTION EVIDENCED BY N/V, VARIABLE APPETITE AND PATIENT REPORT. I - PT AGREED TO TRY ENSURE PUDDING ONCE DAILY AND ENSURE COMPACT BID. M/E - GOAL: PT WILL BE ABLE TO TOLERATE >50% OF MEALS AND AT LEAST ONE ORAL SUPPLEMENT PER DAY IN 4-6 DAYS.
--- NOTE | 2017-05-13 03:21 | NUR ---
Significant Event: A/O X 3. NAUSEA, NO VOMITING, HAD ZOFRAN 4MG PO AT 2030. NAUSEA BETTER AFTERWARDS. SCHEDULED TYLENOL X STRENGTH 1000MG GIVEN. PAIN RATE 1. AMBULATED TO BR WITH ONE ASIST, WALKER, GAITBELT. LEFT LEG IMMOBILIZER ON. PICC LINE INTACT TO RIGHT UPPER ARM. ON TELEMETRY, NO CALLS. OPEN AREA RIGHT CHEEK OF BUTTOCK. DRSGS AND CAPS CHANGED DONE TO PICC LINE BY Amaury NAVARRO RN THIS SHIFT. DENIES NUMBNESS OR TINGLING TO LOWER EXTREMITIES. Follow up:
[2017-05-13 04:03] LABS: ANION GAP 10.7 (10.0-19.0); CALCIUM 10.4 mg/dL (8.5-10.5); CREATININE 1.2 mg/dL (0.5-1.1); POTASSIUM 3.7 mMol/L (3.7-5.1)
[2017-05-13 04:09] LABS: BASOPHIL % 0.7 %; EOSINOPHIL # 0.1 K/uL (0.0-0.5); EOSINOPHIL % 2.6 %; HEMATOCRIT 25.6 % (33.0-46.0); LYMPHOCYTE # 1.3 K/uL (0.8-4.0); LYMPHOCYTE % 23.4 %; MCH 27.5 pg (27.0-34.0); MCHC 31.3 gm/dL (32.0-36.5); MONOCYTE # 0.3 K/uL (0.0-1.0); MONOCYTE % 5.9 %; MPV 11.9 fl (9.4-12.4); NEUTROPHIL # (ANC) 3.7 K/uL (1.8-7.8); NEUTROPHIL % 67.4 %; NRBC % 0 /100WBC (0-0.00); PLATELET COUNT 341 K/uL (150-450); RBC 2.91 M/uL (3.50-5.50); RDW-CV 15.9 % (11.9-14.6); WBC 5.5 K/uL (4.0-11.0)
--- NOTE | 2017-05-13 09:43 | NUR ---
I HAVE NOT RECEIVED CALL FROM EDI AT [facility] AT TO WHETHER OR NOT THEY WILL ACCEPT PATIENT. I ATTEMPTED TO CONTACT HIM BUT HAD TO LEAVE A MESSAGE ON HIS VOICE MAIL. I ALSO ATTEMPTED TO CONTACT DONNY HERNANDEZ TO GET AHOLD OF HER.
--- NOTE | 2017-05-13 09:52 | NUR ---
RECEIVED CALL FROM EDI Barrera AT [facility] AND HE REPORTS THAT THEY WILL BE ABLE TO ACCEPT PATIENT TODAY IF SHE IS READY FOR DISCHARGE.
--- NOTE | 2017-05-13 12:05 | NUR ---
RECEIVED REFERRAL THAT PATIENT CAN TRANSFERE TO [facility] TODAY. I SPOKE TO EDI AT [facility] HE REPORTS THAT THEY WILL BE HERE AT 1400 TO GET PATIENT. SPOKE TO PATIENT AND INFORMED HER OF THIS.AND SHE IS IN AGREEMENT TO THE PLAN. TRANSFERE ORDERS HAVE BEEN COMPLETED AND I FAXED THEM TO EDI AT [facility]
--- NOTE | 2017-05-13 13:28 | NUR ---
A&O. 1PA. HTN. LEG IMMOB. AT ALL TIMES. TELE. N/V. WAITING FOR DC TO [facility] AT 1400
== END 2017-05-13 15:00 | DRG 466 ==
LOC: GPCU 13:29 → G3N 04-27 17:19
PROVIDERS: Internal Medicine; Nurse Practitioner Family; Pediatrics Pediatric Cardiology; Physician Assistant; ADMIT Internal Medicine
DX: T84.54XA Infection and inflammatory reaction due to internal left knee prosthesis, initial encounter (principal); A41.9 Sepsis, unspecified organism; N17.9 Acute kidney failure, unspecified; E44.0 Moderate protein-calorie malnutrition; M00.062 Staphylococcal arthritis, left knee; D62 Acute posthemorrhagic anemia; E87.1 Hypo-osmolality and hyponatremia; N39.0 Urinary tract infection, site not specified; T81.30XA Disruption of wound, unspecified, initial encounter; A49.02 Methicillin resistant Staphylococcus aureus infection, unspecified site; E03.9 Hypothyroidism, unspecified; E87.6 Hypokalemia; E87.70 Fluid overload, unspecified; H92.09 Otalgia, unspecified ear; I10 Essential (primary) hypertension; K52.9 Noninfective gastroenteritis and colitis, unspecified; E66.9 Obesity, unspecified; Z68.38 Body mass index [BMI] 38.0-38.9, adult; T84.013A Broken internal left knee prosthesis, initial encounter
CPT/HCPCS: A9270; C1713; C1751; C1776; C1894; J0360; J0690; J0692; J0696; J1644; J1650; J1885; J2001; J2405; J2543; J2550; J2765; J2795; J2997; J3010; J3370; J3475; J3480; J7030; J7040; J7050; J7060; J7120; Q9967

== ENCOUNTER → 2017-04-26 | Outpatient (CLI) | payer MEDICARE ==
[~2017-04-26] MED LIST: ACETAMINOPHEN1 EAC1 PO; APRESOLINE25 MG PO; BENADRYL50 MG PO; COLACE100 MG PO; DILAUDID 2MG(HYD2 MG PO; DRISDOL 5050000 UNIT PO; DURICEF (NON-500 MG PO; FLONASE 50 MCG/16 GM NOSE; GLUCOPHAGE500 MG PO; HYGROTON25 MG PO; K-TAB ER20 MEQ PO; KEFLEX500 MG PO; LEVOTHROID (S125 MCG PO; LOPRESSOR50 MG PO; LYRICA 75MG CAP75 MG PO; MACROBID100 MG PO; MIRALAX17 GM PO; NAPROSYN PO; NAPROSYN375 MG; NAPROSYN375 MG PO; NAPROSYN500 MG PO; NORCO 5-325 MG1 TAB PO; PAIN RELIEVER500 MG PO; PERCOCET 5-3251 EACH PO; PRAVASTATIN SOD40 MG PO; PRILOSEC20 M1 PO; PRILOSEC20 MG PO; PRINIVIL (ZESTR20 MG PO; RIFADIN, RIMAC300 MG PO; TYLENOL EXTRA500 MG PO; TYLENOL/COD#31 TAB PO; ULTRAM50 MG PO; VALIUM5 MG PO; XARELTO10 MG PO; ZOFRAN4 MG PO
== END | disposition disaster alternative care site (69) ==
LOC: GAMB 12:25
DX: R10.84 Generalized abdominal pain (principal); M79.605 Pain in left leg; R10.13 Epigastric pain
CPT/HCPCS: A0425; A0426

== ENCOUNTER → 2017-06-07 | Outpatient (CLI) | payer MEDICARE ==
[~2017-06-07] MED LIST changes: +APRESOLINE25 MG PO; +DRISDOL 5050000 UNIT PO; +DURICEF (NON-500 MG PO; +GLUCOPHAGE500 MG PO; +K-TAB ER20 MEQ PO; +LYRICA 75MG CAP75 MG PO; +RIFADIN, RIMAC300 MG PO; +ZOFRAN4 MG PO
[2017-06-07 10:46] LABS: BASOPHIL % 0.3 %; EOSINOPHIL # 0.1 K/uL (0.0-0.5); HEMATOCRIT 28.6 % (33.0-46.0); HEMOGLOBIN 8.9 g/dL (10.0-15.0); IMMATURE GRANULOCYTE % 0.5 %; LYMPHOCYTE # 1.4 K/uL (0.8-4.0); LYMPHOCYTE % 17.4 %; MCH 26.1 pg (27.0-34.0); MCHC 31.1 gm/dL (32.0-36.5); MCV 83.9 fl (83.0-98.0); MONOCYTE # 0.4 K/uL (0.0-1.0); MONOCYTE % 4.9 %; MPV 12.1 fl (9.4-12.4); NEUTROPHIL # (ANC) 6.1 K/uL (1.8-7.8); NEUTROPHIL % 75.9 %; NRBC % 0 /100WBC (0-0.00); PLATELET COUNT 417 K/uL (150-450); RBC 3.41 M/uL (3.50-5.50); RDW-CV 14.6 % (11.9-14.6)
== END ==
PROVIDERS: Internal Medicine
DX: A09 Infectious gastroenteritis and colitis, unspecified (principal); T84.54XS Infection and inflammatory reaction due to internal left knee prosthesis, sequela

== ENCOUNTER 2017-06-14 10:40 | Inpatient (IN) | payer MEDICARE ==
[~2017-06-14] VITALS: Ht 165.1 cm; Wt 93.1 kg
--- NOTE | ~2017-06-14 | OR ---
PATIENT'S NAME: CHEVY CARRENO V [facility] AGE: 66 Y [address] ROOM: [place] [address] LOCATION: [facility] ADMIT DATE: 06/14/2017 OR/Procedure Report DISCHARGE DATE: FAMILY PHYSICIAN: Nicole Anguiano MD ATTENDING PHYSICIAN: KEELY BOJORQUEZ SURGEON: Keely Bojorquez MD TRAVELING STOREKEEPER: 1. MELANIE Greenberg. 2. Phill Caballero CST/FOAM CUTTING SUPERVISOR. DATE OF PROCEDURE: 06/17/2017 PREOPERATIVE DIAGNOSES: Periprosthetic left knee infection. Well-fixed and well-aligned complex revision left total knee arthroplasty with segmental, distal femoral, and proximal tibial replacement. Extensor mechanism compromised, left knee. 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 POSTOPERATIVE DIAGNOSES: Periprosthetic left knee infection. Well-fixed and well-aligned complex revision left total knee arthroplasty with segmental, distal femoral, and proximal tibial replacement. Extensor mechanism compromised, left knee. 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 PROCEDURES PERFORMED: Removal of left total knee arthroplasty prosthesis. Irrigation and debridement of left knee. Please note that this is the first portion of a combined procedure. This portion of the procedure was performed by md. The second portion of the procedure will consist of a left above knee amputation. This portion of the procedure was performed by me. The above knee amputation will be performed by Dr. Klaus Gunn. ANESTHESIA: General endotracheal anesthesia. ESTIMATED BLOOD LOSS: Less than 10 mL. SPECIMENS: None. IMPLANTS: None. EXPLANTS: Myranda rotating hinge total knee arthroplasty, femoral and tibial components and tibial stem. Distal femoral cerclage cable. TOURNIQUET TIME: 19 minutes. INDICATION FOR PROCEDURE: Ms. Carreno is a 66-year-old female, who presented PATIENT'S NAME: CHEVY CARRENO [facility] AGE: 66 Y [address] ROOM: [place] [address] LOCATION: [facility] ADMIT DATE: 06/14/2017 OR/Procedure Report DISCHARGE DATE: FAMILY PHYSICIAN: Nicole Anguiano MD ATTENDING PHYSICIAN: KEELY BOJORQUEZ with a periprosthetic infection of her left knee, which was initially treated with irrigation and debridement and attempted prosthetic retention. Unfortunately, the skin had started to break down and drain at the distal aspect of her incision after having completed 6 weeks of intravenous antibiotics. She has undergone multiple previous failed total knee arthroplasty including a previous 2-stage exchange for previous infection (performed elsewhere). The previously healed tibial tubercle portion of her extensor mechanism repaired to the proximal tibial segment has loosened (associated with her infection). Risks, benefits, limitations, and alternatives to this procedure have been thoroughly reviewed with the patient and her . She has elected to proceed with above knee amputation rather than a third 2-stage exchange arthroplasty. Please refer to my separately dictated note from earlier this week. She understands the potential for persistent infection, phantom limb pain, neurovascular complications, and potential need for further surgery. DESCRIPTION OF PROCEDURE: The patient positioned supine. Prophylactic antibiotics, tranexamic acid, and general endotracheal anesthesia were administered. A well-padded pneumatic tourniquet was placed around the left proximal thigh, and the left lower extremity was prepped and draped with vigilant sterile technique. The wound VAC was removed from the distal aspect of the incision prior to prepping and draping. There was no malodor. There was no praveen purulence. There had been mild serosanguineous drainage from the wound VAC. The left lower extremity was elevated for 3 minutes prior to inflation of the tourniquet. The limb was not exsanguinated with an Esmarch wrap. The knee joint was approached by extending the orifice from the wound VAC proximally in line with preexisting anterior knee scar. The patella was excised. The disimpaction instrumentation was utilized to remove the distal femoral and proximal tibial segments from their respective stems. Inspection of the wound bed demonstrated a moderate amount of slightly purulent exudate. The joint space was thoroughly irrigated with 1.5 L of bacteriostatic pulsatile saline lavage. The stem extraction device was screwed into the femoral stem and the stem was removed intact. The cement mantle remained adherent to the femoral shaft. The cerclage cable was removed from the distal femur. There was no softening of the distal femoral bone. Cement osteotomes were utilized to remove the visible portions of the cement mantle. The tourniquet was released at 19 minutes and there was no significant hemorrhage. The incision was thoroughly irrigated with an additional 1.5 L of bacteriostatic pulsatile saline lavage and packed with lap sponges. At this point in time, my portion of the case concluded and Dr. Gunn PATIENT'S NAME: CHEVY CARRENO V [facility] AGE: 66 Y [address] ROOM: [address] [address] LOCATION: [facility] ADMIT DATE: 06/14/2017 OR/Procedure Report DISCHARGE DATE: FAMILY PHYSICIAN: Nicole Anguiano MD ATTENDING PHYSICIAN: KEELY BOJORQUEZ scrubbed in and commenced his portion of the case. Please refer to the separately dictated procedure note for Dr. Gunn' portion of the operation. MD MARY PABLO/denisa /[id number] d: 06/17/172024 t: 06/20/17 1314, OPERATIVE SUMMARY
--- NOTE | ~2017-06-14 | OR ---
PATIENT'S NAME: CHEVY CARRENO V [facility] AGE: 66 Y [address] ROOM: [place] [address] LOCATION: [facility] ADMIT DATE: 06/14/2017 OR/Procedure Report DISCHARGE DATE: FAMILY PHYSICIAN: Nicole Anguiano MD ATTENDING PHYSICIAN: KEELY BOJORQUEZ SURGEON: Keely Bojorquez MD SEISMIC PLOTTER: 1. Bk Guevara PA-C. 2. Phill Caballero CST/LEGISLATIVE ASSISTANT. DATE OF PROCEDURE: 06/15/2017 PREOPERATIVE DIAGNOSES: 1. Left knee septic arthritis. 2. Left knee periprosthetic infection. 3. Skin breakdown at distal left knee incision. POSTOPERATIVE DIAGNOSES: 1. Left knee septic arthritis. 2. Left knee periprosthetic infection. 3. Skin breakdown at distal left knee incision. PROCEDURE PERFORMED: Irrigation and debridement of left knee with placement of wound VAC. ANESTHESIA: General endotracheal anesthesia. ESTIMATED BLOOD LOSS: Less than 20 mL. SPECIMEN: Synovial fluid for culture and cell count. COMPLICATIONS: None. INDICATION FOR PROCEDURE: Ms. Carreno presents with skin breakdown at the distal aspect of her left knee incision. She has a revision left total knee arthroplasty with segmental replacements of the proximal tibia and distal femur subsequent to multiple previous failed left total knee arthroplasties. This prosthesis performed well for her during its 1st year, but she subsequently developed a left knee infection. We attempted to preserve her prosthesis by performing an irrigation and debridement and bearing exchange approximately 2 months ago. She has completed 6 weeks of intravenous antibiotics and was converted to oral antibiotics last week. Over the past few days, she has noticed skin irritation and blistering at the distal aspect of her incision. This has started to drain. I recommended exploration, irrigation, and debridement and we have discussed the fact that this would be the initial stage of an anticipated 2 or 3 stage procedure. We discussed options of subsequent 2-stage exchange arthroplasty versus the option of above- PATIENT'S NAME: CHEVY CARRENO V [facility] AGE: 66 Y [address] ROOM: [place] [address] LOCATION: [facility] ADMIT DATE: 06/14/2017 OR/Procedure Report DISCHARGE DATE: FAMILY PHYSICIAN: Nicole Anguiano MD ATTENDING PHYSICIAN: KEELY BOJORQUEZ knee amputation. Our intent today is to decompress the putative evolving septic arthritis and to obtain deep cultures and to prevent the patient from becoming septic while she contemplates her options. She states that she and her are strongly leaning in favor of proceeding with an above-knee amputation rather than attempting limb salvage. Informed consent granted. DESCRIPTION OF PROCEDURE: The patient positioned supine after administration of general endotracheal anesthesia. A well-padded pneumatic tourniquet was placed around her left proximal thigh. Photographs of the incision were obtained. These demonstrated multiple clustered vesicles forming at the distal 3rd of the incision. The remainder of the incision is completely epithelialized. There is neutral alignment. There is no malodor. The left lower extremity was prepped and draped with vigilant sterile technique. The left lower extremity was elevated for 2 minutes prior to inflation of the tourniquet. The affected region of skin was excised with a 5-cm long ellipse. Moderately purulent serosanguineous fluid was evacuated from the knee. There was abundant amorphous material. The incision was irrigated with 3 L of bacteriostatic pulsatile saline lavage. A wound VAC sponge was packed into the wound and the wound VAC was applied and suction was initiated confirming a closed system. The patient was extubated and transported to the Postanesthesia Care Unit in stable and comfortable condition. MD MARY PABLO/denisa /[id number] d: 06/16/17 0121 t: 06/20/17 1312, OPERATIVE SUMMARY
--- NOTE | ~2017-06-14 | PN ---
PATIENT'S NAME: CHEVY MARTIN V [facility] AGE: 66 Y [address] ROOM: [id number] [place], [place] [address] LOCATION: G3 ADMIT DATE: 06/14/2017 Progress Notes DISCHARGE DATE: FAMILY PHYSICIAN: Nicole Anguiano MD ATTENDING PHYSICIAN: KEELY BOJORQUEZ DATE OF SERVICE: 06/15/2017 I had a lengthy discussion with the patient and her today. This is the culmination of multiple discussions that we have had over the past several weeks. We have discussed relative risks, benefits, and limitations of performing a 2-stage revision of left total knee arthroplasty (accompanied by a gastrocnemius flap to the anterior tibia) versus an above-knee amputation. After considerable consideration, the patient has elected to proceed with an above-knee amputation. She wishes to have the most definitive procedure performed possible in order to minimize the potential for recurrent infection. The contributing factors to this decision include the following: Recurrent infection, extensor mechanism compromise, severe distal femoral and proximal tibial bone loss, compromised soft tissue coverage over the proximal tibia (requiring flap coverage). After the patient's decision, I informed them that I forwarded her x-rays to Dr. Jewel Galindo ([facility] limb salvage specialist). Dr. Galindo independently felt that the patient's best option to achieve her desired goals would be to proceed with above-knee amputation. The patient understands that the procedure would be a combined team approach. She understands that I will remove her prosthesis and Dr. Klaus Gunn would perform the above-knee amputation. I have discussed technical aspects of the surgery, as well as risks and limitations thereof. We have specifically discussed the potential for persistent and/or recurrent infection, phantom limb pain, neurovascular complications, blood transfusion risks, and the potential need for further surgery. She understands that she will not be fit for her definitive prosthetic socket for several weeks. She understands that she will need to be fit for a stump sock. She understands and accepts this. We will proceed tomorrow. Lauren has been held. We performed a preliminary irrigation and debridement and placed a wound VAC this morning in order to minimize the potential for septicemia. KEELY BOJORQUEZ MD PATIENT'S NAME: CHEVY MARTIN V [facility] AGE: 66 Y [address] ROOM: [address] [address] LOCATION: [facility] ADMIT DATE: 06/14/2017 Progress Notes DISCHARGE DATE: FAMILY PHYSICIAN: Nicole Anguiano MD ATTENDING PHYSICIAN: KEELY BOJORQUEZ/denisa /[id number] d: 06/16/17 0212 t: 06/25/17 1159, PROGRESS NOTES
--- NOTE | ~2017-06-14 | CON ---
PATIENT'S NAME: SAIMRA MARTIN V [facility] AGE: 66 Y [address] ROOM: [id number] [place], [place] [address] LOCATION: [facility] ADMIT DATE: 06/14/2017 Consultation DISCHARGE DATE: FAMILY PHYSICIAN: Nicole Anguiano MD ATTENDING PHYSICIAN: KEELY BOJORQUEZ DATE OF CONSULTATION: 06/14/2017 REFERRING PHYSICIAN: Keely Bojorquez MD CONSULTING PHYSICIAN: Dr. Nathanael Cross with hospitalist service. REASON FOR CONSULTATION: Preoperative clearance prior to left knee I and D and wound VAC placement, in the setting of prosthetic joint infection. HISTORY OF PRESENT ILLNESS: Samira is a very pleasant 66-year-old female, recently admitted from April 26 through May 13, at which time she was dealing with complications and periprosthetic infection related to a left knee arthroplasty. The patient has had ongoing difficulties with this left knee including multiple incision and drainages and procedures to attempt to clear the infection. At her recent stay she was also noted to have gastroenteritis and mild acute kidney injury. Both improved at the time of discharge. The patient had done well in the interim, until lately, when she began to notice increasing pain and recurrent drainage from the inferior aspect of her incision on the anterior side of her left knee. She denies any recent significant fevers though notes that her temperature was slightly elevated from baseline to 99 Fahrenheit. She also notes no recent cough, shortness of breath, chest pain, palpitations, abdominal pain, or increasing leg edema. She has no known history of ischemic cardiac disease, cerebrovascular disease, insulin-dependent diabetes, congestive heart failure, or chronic renal failure. She notes that she is relatively active and is able to walk around and across her house without difficulty and without endorsing chest pain or shortness of breath as well as no lightheadedness. She denies any new recent cardiopulmonary symptoms since her most recent I and D done on April 27. Hospitalist service has been requested to see patient regarding preoperative clearance in the setting of failure of chronic suppressive antibiotics to alleviate this infection. PAST MEDICAL HISTORY: 1. Left total knee arthroplasty with history of MSSA (oxacillin resistant) with wound dehiscence and recurrent need for incision and drainage. 2. Anemia, acute blood loss type. 3. Essential hypertension. 4. Moderate protein calorie malnutrition. [facility] 66 Y [address] ROOM: [place] [address] LOCATION: [facility] ADMIT DATE: 06/14/2017 Consultation DISCHARGE DATE: FAMILY PHYSICIAN: Nicole Anguiano MD ATTENDING PHYSICIAN: KEELY BOJORQUEZ 5. Vitamin D deficiency. 6. Obesity. 7. Hypothyroidism. 8. Hyperlipidemia. 9. Constipation. 10. Allergies. PAST SURGICAL HISTORY: Bilateral knee arthroplasties, with complications from left as noted above. FAMILY HISTORY: Reviewed and noncontributory to current presentation. SOCIAL HISTORY: The patient is a nonsmoker and nondrinker, lives with her . ALLERGIES: NO KNOWN DRUG ALLERGIES. MEDICATIONS: Currently being reconciled but notable for rifampin and cefadroxil as medications to treat infection currently as well as, 1. Amlodipine. 2. Lopressor. 3. Diazepam. 4. Chlorthalidone and lisinopril for hypertension. 5. Levothyroxine for hypothyroidism. 6. Pravastatin for hyperlipidemia. REVIEW OF SYSTEMS: A complete review of systems was performed and negative except as otherwise noted above in HPI. PHYSICAL EXAMINATION: VITAL SIGNS: Afebrile, pulse by auscultation 80s, respirations 16, blood pressure pending, saturating well on room air. GENERAL: The patient is in no acute distress. Sitting up comfortably on exam table. Seen in Orthopedics Clinic. HEENT: Head: Normocephalic, atraumatic. Moist mucous membranes. Pupils equal, round, reactive to light. Extraocular muscles intact. NECK: Supple without lymphadenopathy, thyromegaly, or JVD. CARDIOVASCULAR: Regular rate and rhythm. No murmurs, rubs, or gallops appreciated. 2+ pulses present bilaterally, dorsalis pedis and radial. LUNGS: Respirations are clear to auscultation bilaterally. Normal effort on room air. PATIENT'S NAME: SAMIRA MARTIN V [facility] AGE: 66 Y [address] ROOM: [place] [address] LOCATION: [facility] ADMIT DATE: 06/14/2017 Consultation DISCHARGE DATE: FAMILY PHYSICIAN: Nicole Anguiano MD ATTENDING PHYSICIAN: KEELY BOJORQUEZ ABDOMEN: Obese, soft, nontender. Normoactive bowel sounds. EXTREMITIES: Right anterior knee with surgical scar, well healed without lesion. The left anterior knee with extended surgical scar and mild erythema at inferior aspect with significant serosanguineous drainage with minimal surrounding warmth and erythema. NEUROLOGIC: The patient is alert and oriented, in no acute distress. Cooperative and pleasant. LABORATORY AND IMAGING DATA: None new currently, though CBC, PT/INR, and metabolic studies have been ordered from Orthopedics Clinic, will follow up these results and intervene accordingly ASSESSMENT: This is a very pleasant 66-year-old female with recurrent left knee periprosthetic joint infection, in need of incision and drainage and wound VAC. Hospitalist service consulted for perioperative management. At this point, RCRI score is 0, indicative of low cardiac risk for a low-to- intermediate risk surgical procedure. The patient is aware of risks and benefits of procedure as per discussion with Dr. Keely Bojorquez and agrees to go ahead with the procedure. No further perioperative cardiovascular testing is advised at this point, given lack of cardiovascular symptoms and no prior known history of same. The patient did take her home antihypertensives today, we will monitor renal function and follow up on labs already ordered in clinic with Dr. Bojorquez this am. Once labs are back, we will adjust accordingly. The patient is notably of higher risk for obstructive sleep apnea as well as difficult extubation given body habitus which will be monitored closely. Will likely warrant admission to 3N following procedure, hospitalist will follow. MD ZAINAB GALLEGO/denisa /[id number] d: 06/14/17 1602 t: 06/14/17 1819, CONSULTATION REPORT
--- NOTE | ~2017-06-14 | OR ---
PATIENT'S NAME: CHEVY CARRENO V [facility] AGE: 66 Y [address] ROOM: [place] [address] LOCATION: [facility] ADMIT DATE: 06/14/2017 OR/Procedure Report DISCHARGE DATE: FAMILY PHYSICIAN: Nicole Anguiano MD ATTENDING PHYSICIAN: KEELY BOJORQUEZ SURGEON: Klaus Gunn MD SALES VICE PRESIDENT: None. DATE OF PROCEDURE: 06/17/2017 CORRECTED COPY -- Concrete Batching Plant Operator / 06-21-2017 / [email or web address] PREOPERATIVE DIAGNOSIS: Infected left revision total knee arthroplasty with tumor prosthesis, unsalvageable. 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 PROCEDURES: 1. Left above-knee amputation. 2. Use of intraoperative fluoroscopy, less than 1 hour. ANESTHESIA: General endotracheal anesthesia. FLUIDS: See anesthesia report. EBL: 200 mL. TOURNIQUET: Left proximal thigh 250 mmHg. SPECIMEN: Left above-knee amputation. COMPLICATIONS: None. DISPOSITION: Stable in PACU. COUNTS: All counts correct. INDICATIONS: Ms. Carreno is a 66-year-old female, who underwent the noted procedures above. The risks, benefits, and alternatives pursuing surgical intervention were discussed with the patient in detail. She elected to proceed with surgery. Anesthesia was consulted for their perioperative evaluation of the patient. I marked the patient's left thigh indicating correct surgical site. DESCRIPTION OF PROCEDURE: The patient was brought from the holding area to the operating room. A time-out was performed. General endotracheal anesthesia was administered. My partner, Dr. Bojorquez, performed the explant of the PATIENT'S NAME: CEHVY CARRENO V [facility] AGE: 66 Y [address] ROOM: [place] [address] LOCATION: [facility] ADMIT DATE: 06/14/2017 OR/Procedure Report DISCHARGE DATE: FAMILY PHYSICIAN: Nicole Anguiano MD ATTENDING PHYSICIAN: KEELY BOJORQUEZ revision distal femoral replacement prosthesis from the femoral canal. The wounds were also I and D'd by him. See separate operative report. I turned my attention to the left knee. The implants were explanted. I used an Esmarch to exsanguinate the limb, and the tourniquet was inflated to 250 mmHg. I began by performing a curvilinear incision, proximal portion of the previous surgical incision to the knee. The incision was carried medially and laterally, and then down the lateral borders of the thigh and leg. I cauterized small penetrating vessels and used a silk suture to tie and ligate the larger vascular bundles. I used an oscillating saw. I performed my amputation of the distal femur. This was taken more proximal because the bone was not salvageable. There was still cement in the canal from the time of explant. I introduced intraoperative fluoroscopy and confirmed my amputation site of the distal femur. I used the saw to then bevel the femur, and I used a rasp to smooth the edges. Once I achieved hemostasis of the major vessels, I transected the sciatic nerve and allowed it to retract proximally. The tourniquet was let down. The wound was packed. All the major vascular supply to the limb was ligated. A Bovie electrocautery device was used in order to achieve hemostasis of the smaller penetrating vessels. The wound was then copiously irrigated with a normal sterile saline solution via pulsatile lavage. I drilled 2 bony tunnels and passed Ethibond suture through them. I tenodesed the adductor muscles to the femur. The residual stump of the quadriceps and hamstring fascia were approximated using 0 Vicryl suture. The posterior flap was approximated subcutaneously using 0 Vicryl suture followed by 2-0 Vicryl suture. Two nylon sutures were used in interrupted horizontal mattress fashion to approximate the skin. The tourniquet was let down. The stump reperfused. A large bore Hemovac was placed prior to closure and Hemovac canister was attached. Sterile dressings were placed in the form of Xeroform, followed by 4x4, ABD, Webril, and Cheng bandage in the form of a stump dressing. The patient was then transferred from the operating table onto the hospital bed and extubated. She was brought to the recovery room in stable condition. There were no intraoperative complications noted. PATIENT'S NAME: CHEVY CARRENO V [facility] AGE: 66 Y [address] ROOM: [address] [address] LOCATION: [facility] ADMIT DATE: 06/14/2017 OR/Procedure Report DISCHARGE DATE: FAMILY PHYSICIAN: Nicole Anguiano MD ATTENDING PHYSICIAN: KEELY BOJORQUEZ IMPRESSION: The patient is status post the noted procedures above. PLAN: The patient will be nonweightbearing in left lower extremity. Postoperative pain control in the form of Percocet and IV morphine as needed for pain. DVT prophylaxis will be in the form of Lovenox and will be started on postoperative day one. Postoperative antibiotics were administered per routine. The Hospitalist Service will continue to manage the patient's concomitant medical comorbidities. Physical Therapy and Occupational Therapy will be consulted for early ambulation and prevention of deconditioning. I will continue to follow the patient closely in the postoperative period. MD FAYE [place]/denisa /[id number] CORRECTED COPY -- 06-21-2017 / [email or web address] d: 06/17/17 2212 t: 06/22/17 0732, OPERATIVE SUMMARY
--- NOTE | ~2017-06-14 | OR ---
PATIENT'S NAME: CHEVY MARTIN V [facility] AGE: 66 Y [address] ROOM: [address] [address] LOCATION: [facility] ADMIT DATE: 06/14/2017 OR/Procedure Report DISCHARGE DATE: 06/21/2017 FAMILY PHYSICIAN: Nicole Anguiano MD ATTENDING PHYSICIAN: Aldo Julian SURGEON: Aldo Julian MD PARTS CONTROL CLERK: DATE OF PROCEDURE: 06/17/2017 ADDENDUM: It should be noted that the physician's social worker assistant was actively involved throughout this entire operation. By providing expert retraction, he greatly facilitated and expedited safe exposure of the distal femur, patella, and proximal tibia for explantation of the components. He was also actively involved in patient positioning and prepping and draping. MD MARY PABLO/denisa /[id number] d: 06/25/172 t: 07/08/170, OPERATIVE SUMMARY
--- NOTE | ~2017-06-14 | CON ---
PATIENT'S NAME: VERONICA [facility] AGE: 66 Y [address] ROOM: [place] [address] LOCATION: G3N ADMIT DATE: 06/14/2017 Consultation DISCHARGE DATE: FAMILY PHYSICIAN: Nicole Anguiano MD ATTENDING PHYSICIAN: KEELY BOJORQUEZ REFERRING PHYSICIAN: MELISSA BRISCOE MD Consult for Dr. Bojorquez and Dr. Briscoe. This pleasant 66-year-old lady is referred for rehab/REHEATER admission evaluation. She is status post left above-knee amputation on 06/17, (infected) revision of the left total knee arthroplasty, unsalvageable. PAST HISTORY OF SIGNIFICANCE: 1. Left total knee arthroplasty with history of MSSA and oxacillin-resistant and wound dehiscence and recent and frequent incision and drainage. 2. Anemia. 3. Hypertension. 4. Malnutrition, moderate. 5. Osteoporosis. 6. Moderate obesity. 7. Hypothyroid. 8. Dyslipidemia. She is at the present time alert and oriented. VITAL SIGNS: Blood pressure 163/78, temperature 98.3, pulse 88, respirations 12. She is 5 feet 5 inches tall, and weighs 93.1 kg. She is clinically and neurologically stable and within normal limits. No complaint. Practically, no pain complaints. Can move bilateral upper and right lower extremity well and within normal limits. Left hip also she can move it very well. She did not describe any phantom pain. She has good bowel and bladder control. She is on the following medications: 1. Diazepam. 2. Colace. 3. Dulcolax. 4. Lyrica. 5. Mag-Ox 400. [facility] 66 [facility] [address] ROOM: [address] [address] LOCATION: G3N ADMIT DATE: 06/14/2017 Consultation DISCHARGE DATE: FAMILY PHYSICIAN: Nicole Anguiano MD ATTENDING PHYSICIAN: KEELY BOJORQUEZ 6. Ambien. 7. Tylenol. 8. Phenergan. 9. Zofran. 10. Morphine sulfate. 11. Percocet. 12. Florastor. 13. Vitamin D. 14. Levothyroxine. 15. Apresoline. 16. Pravachol. 17. Protonix. 18. Lopressor. 19. NaCl 0.9%. 20. Ultram. 21. Lovenox. 22. Maxipime. 23. Mouthwash. ASSESSMENT AND PLAN: At the present time, we will continue her on PT/OT, which has been already initiated. I feel this lady will benefit from intensive rehabilitation of about 2 weeks aiming to discharge on modified independent. All the above was explained to her and her and their questions answered in detail. They verbalized understanding and agreement. Thank you for this referral. MD ALEJANDRO PARTIDA/modl /[id number] d: 06/20/17 1507 t: 06/21/17 0700, CONSULTATION REPORT
--- NOTE | ~2017-06-14 | DS ---
PATIENT'S NAME: CHEVY MARTIN V [facility] AGE: 66 Y [address] ROOM: [address] [address] LOCATION: [facility] ADMIT DATE: 06/14/2017 Discharge Summary DISCHARGE DATE: 06/21/2017 FAMILY PHYSICIAN: Nicole Anguiano MD ATTENDING PHYSICIAN: Aldo Julian PRIMARY DIAGNOSIS: Periprosthetic infection of the left knee. SECONDARY DIAGNOSES: 1. Severe left distal femur and left proximal tibial bone loss. 2. Left knee extensor mechanical compromise. 3. Hypokalemia. 4. Hypomagnesia. 5. Acute blood loss anemia. 6. Obesity. 7. Essential hypertension. 8. Hyperlipidemia. 9. Hypothyroidism. 10. Type 2 diabetes mellitus, newly diagnosed. PROCEDURE PERFORMED: 1. I and D of the left knee with wound VAC placement on 06/15/[address] Julian. 2. Removal of left knee prosthesis and left above-knee amputation, performed on 06/17/[address] Julian and Dr. Gunn. HISTORY: The patient is a 66-year-old female, who presented to the clinic with skin breakdown at the distal aspect of her left knee incision. She has a revision left total knee arthroplasty with segmental replacements of the proximal tibial and distal femur subsequent to multiple previous failed left total knee arthroplasties. This prosthesis performed well for her during its first year, but she subsequently developed a left knee infection. We attempted to preserve her prosthesis by performing an irrigation and debridement and bearing exchange approximately 2 months ago. She has completed 6 weeks of intravenous antibiotics and was converted to oral antibiotics last week. Over the past few days, she noticed skin irritation and blistering at the distal aspect of her incision. She was then admitted to [facility] for treatment of her left knee infection. Please refer to her consultation notes as well as her admission history and physical. HOSPITAL COURSE: The patient underwent an Incision and Drainage of left knee and wound VAC placement on June 15, 2017, without complications. General endotracheal anesthesia was utilized. She then underwent a removal of left knee arthroplasty prosthesis and an [id number] amputation of the left knee on 06/17/2017 without complications. General endotracheal anesthesia was PATIENT'S NAME: CHEVY MARTIN V [facility] AGE: 66 Y [address] ROOM: [address] [address] LOCATION: [facility] ADMIT DATE: 06/14/2017 Discharge Summary DISCHARGE DATE: 06/21/2017 FAMILY PHYSICIAN: Nicole Anguiano MD ATTENDING PHYSICIAN: Aldo Julian. She received 72 hours of cefepime 2 g IV every 12 hours for perioperative prophylactic antibiotics. She remained hemodynamically stable and neurovascularly intact throughout the entire hospital course. A Traore was placed on 06/18/2017 for urinary retention. This was then discontinued prior to being transferred to [facility]. Her postoperative deep venous thrombosis prophylaxis consisted of Lovenox 30 mg every 12 hours, early mobilization, and pneumatic compression devices. She received daily physical therapy for gait training and transfer training and progressed decently in physical therapy. On her date of discharge, on 06/21/2017, incisions of her left leg were healing well and showed no signs of infection. DISPOSITION: [facility] at [facility]. DISCHARGE DIET: 1800 calories ADA. DISCHARGE ACTIVITY: She is to be weightbearing as tolerated. There is to be no dressing changes. She is to notify Dr. Julian or Dr. Gunn immediately if she experiences increased pain, fevers, chills, erythema, or drainage. DISCHARGE MEDICATIONS: 1. Lovenox 40 mg subcutaneous daily for 14 days for postoperative DVT prophylaxis. 2. Percocet 5/325 mg 1 to 2 tablets p.o. every 4 hours p.r.n. for pain. 3. Lyrica 75 mg 1 tablet p.o. 3 times daily for pain. 4. Tramadol 50 mg 1 tablet p.o. every 4 to 6 hours for pain. 5. Glucophage 500 mg p.o. twice daily for newly diagnosed diabetes mellitus. 6. Mild sliding scale insulin for newly diagnosed diabetes mellitus. 7. Potassium chloride 40 mEq p.o. daily for hypokalemia. She was then instructed to continue all her other preadmission medications as instructed by her internal medicine doctor. FOLLOWUP: Followup appointment is to be with Dr. Julian's office in 1 week subsequent to dismissal from the hospital for her initial postoperative evaluation. JOSE RUBIN PA-C FOR MD CARYL PABLO/denisa /[id number] d: 06/30/171 t: 06/30/17 1242, DISCHARGE SUMMARY
[~2017-06-14 10:40] MED LIST changes: -APRESOLINE25 MG PO; -DRISDOL 5050000 UNIT PO; -DURICEF (NON-500 MG PO; -GLUCOPHAGE500 MG PO; -K-TAB ER20 MEQ PO; -LYRICA 75MG CAP75 MG PO; -RIFADIN, RIMAC300 MG PO; -ZOFRAN4 MG PO
[2017-06-14] MEDS ORDERED: DRISDOL 5050000 UNIT PO (12:15)
[2017-06-14] MEDS ORDERED: ULTRAM50 MG PO (12:15)
[2017-06-14] MEDS ORDERED: XARELTO10 MG PO (12:15)
[2017-06-14] MEDS ORDERED: APRESOLINE25 MG PO (12:16)
[2017-06-14] MEDS ORDERED: RIFADIN, RIMAC300 MG PO (12:16)
[2017-06-14] MEDS ORDERED: ZOFRAN4 MG PO (12:16)
[2017-06-14] MEDS ORDERED: DURICEF (NON-500 MG PO (12:17)
[2017-06-14] MEDS ORDERED: TYLENOL EXTRA500 MG PO (12:22)
[2017-06-14 12:43] LABS: BASOPHIL % 0.3 %; EOSINOPHIL # 0.1 K/uL (0.0-0.5); EOSINOPHIL % 1.6 %; HEMOGLOBIN 9.5 g/dL (10.0-15.0); IMMATURE GRANULOCYTE % 0.3 %; LYMPHOCYTE # 1.6 K/uL (0.8-4.0); LYMPHOCYTE % 23.4 %; MCH 26.5 pg (27.0-34.0); MCHC 31.7 gm/dL (32.0-36.5); MCV 83.8 fl (83.0-98.0); MONOCYTE # 0.5 K/uL (0.0-1.0); MONOCYTE % 6.6 %; MPV 11.3 fl (9.4-12.4); NEUTROPHIL # (ANC) 4.7 K/uL (1.8-7.8); NEUTROPHIL % 67.8 %; NRBC % 0 /100WBC (0-0.00); PLATELET COUNT 500 K/uL (150-450); RBC 3.58 M/uL (3.50-5.50); RDW-CV 14.7 % (11.9-14.6); WBC 6.9 K/uL (4.0-11.0)
[2017-06-14 12:51] LABS: INR - (THERAPEUTIC) 1.02 (0.92-1.07); PROTIME 10.7 SECONDS (9.8-11.4)
[2017-06-14 13:00] LABS: ALBUMIN 2.5 gm/dL (3.5-5.0); ANION GAP 11.6 (10.0-19.0); CREATININE 1.1 mg/dL (0.5-1.1); PHOSPHORUS 2.9 mg/dL (2.5-4.9); POTASSIUM 2.6 mMol/L (3.7-5.1)
[2017-06-14 23:36] LABS: ANION GAP 11.8 (10.0-19.0); CALCIUM 8.2 mg/dL (8.5-10.5); CREATININE 1.1 mg/dL (0.5-1.1); POTASSIUM 3.8 mMol/L (3.7-5.1)
[2017-06-15 16:12] LABS: ANION GAP 10.6 (10.0-19.0); CALCIUM 8.2 mg/dL (8.5-10.5); POTASSIUM 3.6 mMol/L (3.7-5.1)
[2017-06-16 04:05] LABS: BASOPHIL % 0.4 %; EOSINOPHIL # 0.2 K/uL (0.0-0.5); EOSINOPHIL % 4.3 %; HEMATOCRIT 27.5 % (33.0-46.0); HEMOGLOBIN 8.6 g/dL (10.0-15.0); IMMATURE GRANULOCYTE % 0.4 %; LYMPHOCYTE # 1.3 K/uL (0.8-4.0); LYMPHOCYTE % 23.1 %; MCH 26.5 pg (27.0-34.0); MCHC 31.3 gm/dL (32.0-36.5); MCV 84.9 fl (83.0-98.0); MONOCYTE # 0.3 K/uL (0.0-1.0); MONOCYTE % 6.1 %; MPV 11.2 fl (9.4-12.4); NEUTROPHIL # (ANC) 3.7 K/uL (1.8-7.8); NEUTROPHIL % 65.7 %; NRBC % 0 /100WBC (0-0.00); RBC 3.24 M/uL (3.50-5.50); RDW-CV 14.9 % (11.9-14.6); WBC 5.6 K/uL (4.0-11.0)
[2017-06-16 04:06] LABS: PLATELET COUNT 396 K/uL (150-450)
[2017-06-16 04:20] LABS: ANION GAP 12.5 (10.0-19.0); CALCIUM 8.3 mg/dL (8.5-10.5); CREATININE 0.9 mg/dL (0.5-1.1); POTASSIUM 3.5 mMol/L (3.7-5.1)
[2017-06-17 04:47] LABS: ANION GAP 11.5 (10.0-19.0); CALCIUM 8.5 mg/dL (8.5-10.5); CREATININE 0.9 mg/dL (0.5-1.1); POTASSIUM 3.5 mMol/L (3.7-5.1)
[2017-06-18 06:03] LABS: BLOOD UREA NITROGEN 7 mg/dL (6-24); CHLORIDE 99 mMol/L (96-110); CO2 28 mMol/L (22-32); CREATININE 0.7 mg/dL (0.5-1.1); MAGNESIUM 1.4 mg/dL (1.8-2.6); SODIUM 135 mMol/L (135-145)
[2017-06-20 05:46] LABS: ANION GAP 10.2 (10.0-19.0); CALCIUM 7.7 mg/dL (8.5-10.5); CREATININE 0.8 mg/dL (0.5-1.1); MAGNESIUM 1.8 mg/dL (1.8-2.6); POTASSIUM 3.2 mMol/L (3.7-5.1)
[2017-06-21 05:59] LABS: ANION GAP 11.1 (10.0-19.0); BLOOD UREA NITROGEN 9 mg/dL (6-24); CALCIUM 7.6 mg/dL (8.5-10.5); CHLORIDE 102 mMol/L (96-110); CO2 28 mMol/L (22-32); CREATININE 0.7 mg/dL (0.5-1.1); POTASSIUM 3.1 mMol/L (3.7-5.1); SODIUM 138 mMol/L (135-145)
[2017-06-21 06:02] LABS: ALBUMIN 1.9 gm/dL (3.5-5.0); PHOSPHORUS 1.5 mg/dL (2.5-4.9)
== END 2017-06-21 10:15 | DRG 464 ==
LOC: GSDC 10:40 → G3N 10:40 → GSDC 16:41 → G3N 16:41
PROVIDERS: Family Medicine; Internal Medicine; Nurse Practitioner Family; ADMIT Orthopaedic Surgery
PROC: 0HDLXZZ Extraction of Left Lower Leg Skin, External Approach (ICD-10-PCS; principal; 2017-06-15)
PROC: 2W1MX6Z Compression of Left Lower Extremity using Pressure Dressing (ICD-10-PCS; principal; 2017-06-15)
PROC: 0MDP0ZZ Extraction of Left Knee Bursa and Ligament, Open Approach (ICD-10-PCS; 2017-06-17)
PROC: 0SPD0JZ Removal of Synthetic Substitute from Left Knee Joint, Open Approach (ICD-10-PCS; 2017-06-17)
PROC: 0Y6D0Z3 Detachment at Left Upper Leg, Low, Open Approach (ICD-10-PCS; 2017-06-17)
DX: T84.54XA Infection and inflammatory reaction due to internal left knee prosthesis, initial encounter (principal); D62 Acute posthemorrhagic anemia; E44.0 Moderate protein-calorie malnutrition; M00.9 Pyogenic arthritis, unspecified; E83.42 Hypomagnesemia; E11.65 Type 2 diabetes mellitus with hyperglycemia; E87.6 Hypokalemia; I10 Essential (primary) hypertension; K21.9 Gastro-esophageal reflux disease without esophagitis; E66.9 Obesity, unspecified; B95.61 Methicillin susceptible Staphylococcus aureus infection as the cause of diseases classified elsewhere; R33.9 Retention of urine, unspecified
CPT/HCPCS: A9270; J0692; J1100; J1650; J1885; J2001; J2250; J2270; J2405; J2795; J3010; J3480; J7030; J7040; J7050; J7120; J7121; P9045; Q0162

== ENCOUNTER 2017-06-21 10:16 | Inpatient (IN) | payer MEDICARE ==
[~2017-06-21] VITALS: Ht 165.1 cm; Wt 86.4 kg
--- NOTE | ~2017-06-21 | HP ---
PATIENT'S NAME: CHEVY MARITN V [facility] AGE: 66 Y [address] ROOM: [facility] [place] [place] [address] LOCATION: [facility] ADMIT DATE: 06/21/2017 History & Physical DISCHARGE DATE: FAMILY PHYSICIAN: Nicole Anguiano MD ATTENDING PHYSICIAN: Tacho Suggs DATE OF SERVICE: HISTORY OF PRESENT ILLNESS: This 66-year-old lady is admitted to rehab unit at [facility] on 06/21/2017. 1. Unstable gait. 2. Dependent in activities of daily self-care. 3. Status post left above-knee amputation with markedly infected and unsalvageable left Ankle/foot, done on 06/17/2017, leading to unstable gait and dependent in activities of daily self-care. She is at high risk of falling. I saw this lady on initial evaluation on consult on 06/20/2017 and recommended intensive rehabilitation for about 10 days to 2 weeks, aiming to discharge on modified independence, and today, and on 06/22, upon re-evaluation, I recommend intensive rehabilitation for about 10 days with PT and OT, aiming to discharge on modified independence. PAST MEDICAL HISTORY: Past history of significance: 1. She has history of anemia. 2. Diabetes, type 2. 3. Hypertension. 4. Malnutrition, mild. 5. Osteoporosis. 6. Hypothyroid. 7. Moderate obesity. 8. Dyslipidemia. PHYSICAL EXAMINATION: VITAL SIGNS: At the present time, her vitals upon admission were as follows: Blood pressure 122/62, temperature 98.0, pulse 78, and respiration rate 16. She is 5 feet 5 inches and weighs 93.1 kg. ALLERGIES: SHE IS ALLERGIC TO LATEX. She is, at the present time, on regular consistency diet, 1800 ADA. PATIENT'S NAME: CHEVY MARTIN V [facility] AGE: 66 Y [address] ROOM: [place] [address] LOCATION: [facility] ADMIT DATE: 06/21/2017 History & Physical DISCHARGE DATE: FAMILY PHYSICIAN: Nicole Anguiano MD ATTENDING PHYSICIAN: Tacho Suggs Her ability to move is markedly well, and she is working with PT and OT well. LABORATORY DATA: She is, at the present time, on 06/22, with Accu-Chek of 152, ranging 208 to 152. CBC: White BC 5.1, RBC 2.82, hemoglobin 7.4, hematocrit 23.6, and platelets 354. CMS: Sodium 140, potassium 3.4, chloride 104, CO2 of 28, BUN 9, creatinine 0.7, and glucose 151. Her hemoglobin A1c is 7.8. UA is negative for bacteria. EGFR is more than 90. ASSESSMENT AND PLAN: At the present time, we will put on intensive PT and OT 3 hours per day, 15 hours per week. We will keep also on mild sliding scale to find the glucose and follow. We will put on PT and OT 3 hours per day, 15 hours per week, for about maybe 10 days or so, aiming to discharge on modified independence. We will keep on Dr. Gunn and Dr. Julian, and hospitalist to follow as necessary. All the above was explained to her. She verbalized understanding and agreement with plan of care. MD ALEJANDRO PARTIDA/denisa /[id number] D: 226 T: HISTORY & PHYSICAL
--- NOTE | ~2017-06-21 | CON ---
PATIENT'S NAME: SAMIRA MARTIN V [facility] AGE: 66 Y [address] ROOM: [id number] [place], [place] [address] LOCATION: [facility] ADMIT DATE: 06/21/2017 Consultation DISCHARGE DATE: 06/28/2017 FAMILY PHYSICIAN: Nicole Anguiano MD ATTENDING PHYSICIAN: Tacho Tam DATE OF CONSULTATION: 06/21/2017 REFERRING PHYSICIAN: Anderson Herzog MD Team members reporting include Dr. Tam; Tennille Diaz, social media specialist; inpatient rehab nursing staff Brooke Magaña, PT; Catina Judd PT; Adriane Vaughan, OT; Lucy Solis, Speech Therapy; Christina Rosa, therapeutic rec; and Sister Alicia Rodriguez, Pastoral Care. CURRENT STATUS: Samira Is a 66-year-old woman, admitted to our inpatient rehab unit on June 21, 2017, following a left ofplm-waf-kzen amputation. She has a history of hyperlipidemia, hypertension, hypothyroidism, diabetes type 2, hypomagnesium, hypokalemia, left knee extensor mechanical compromise. The patient has no skin issues. She takes Percocet for pain. She admitted to our inpatient rehab unit on June 21, 2017. The patient can complete all of her transfers at standby assistance. She walks 50 feet using a front-wheeled walker at contact guard assistance, hopping. She has a newly diagnosed diabetic. She can propel her wheelchair 150 feet at standby assistance. She does have a steep ramp in her home. Pastoral Care will see. Therapeutic rec will see. DISCHARGE PLAN: The patient is receiving 3 hours of PT, OT Tuesday through Tuesday. The patient has daily rehab, nursing, and physiatry involvement as well as therapeutic recreational services. The patient has shown functional improvement and is progressing. Please see her plan of care for specific goals. Plan for patient to discharge in approximately 1 week. Plan is for patient to discharge to home with her . She will go home with outpatient therapy services. TENNILLE DIAZ FOR TACHO TAM MD TD/modl /[id number] d: t: 07/07/17 2158, CONSULTATION REPORT
--- NOTE | ~2017-06-21 | DS ---
PATIENT'S NAME: CHEVY MARTIN V [facility] AGE: 66 Y [address] ROOM: [address] [place] [address] LOCATION: [facility] ADMIT DATE: 06/21/2017 Discharge Summary DISCHARGE DATE: FAMILY PHYSICIAN: Nicole Anguiano MD ATTENDING PHYSICIAN: Faustino Tam This 66-year-old lady was admitted to Rehab Unit on 06/21/2017 and is to be discharged on 06/28/2017. 1. She was admitted with unstable gait. 2. Dependent activities of daily self-care. 3. Status post left above-knee amputation on 06/17/2017, leading to unstable gait and dependent activities of daily self-care. 4. She was put on intensive rehab and did well. Alert and oriented. VITAL SIGNS: Blood pressure 137/68, temperature 97.6, pulse 87, and respirations 16. She is at the present time, she is transferring fairly well, and can do wheelchair mobility 150 feet x3 without much difficulty. She is at the present time going to go on outpatient basis PT/OT 2 to 3 times per week for the coming 4 weeks. I will see her thereafter. She will follow with her family physician as soon as possible. Follow with Dr. Gunn and Dr. Julian each as he sees fit. She is on the following medications: 1. Hygroton 25 mg in the morning. 2. Colace 100 mg p.o. t.i.d. 3. Apresoline 25 mg 4 times daily. 4. Levothroid 125 mcg p.o. daily. 5. Glucophage 500 mg p.o. twice daily. 6. Lopressor 50 mg p.o. b.i.d. 7. Prilosec 20 mg p.o. daily. 8. KCl 40 mEq p.o. daily. 9. Pravastatin sodium 40 mg p.o. at night. 10. Lyrica 75 mg 3 times daily. 11. Tylenol Extra Strength 1 to 2 tablets p.o. q.6 h., do not exceed acetaminophen 4 g q.24 h. 12. Percocet 1 to 2 tablets q.4 h., do not exceed acetaminophen 4 g q.24 h. 13. Ultram 50 mg q.4-6 h. 14. Vitamin D 1 tablet p.o. daily for 2 weeks. 15. Zofran 4 mg p.o. t.i.d. PATIENT'S NAME: CHEVY MARTIN V [facility] AGE: 66 Y [address] ROOM: [address] [place] [id number] LOCATION: [facility] ADMIT DATE: 06/21/2017 Discharge Summary DISCHARGE DATE: FAMILY PHYSICIAN: Nicole Anguiano MD ATTENDING PHYSICIAN: Faustino Tam FINAL DIAGNOSES: 1. Unstable gait. 2. Dependent activities of daily self-care. 3. Status post left above-knee amputation, secondary to end-stage non- salvageable infection. 4. Anemia. 5. Osteoporosis. 6. Hypertension. 7. Hypothyroid. 8. Dyslipidemia. 9. Diabetes type 2. The patient is not to drive and/or operate any mechanical device. She will follow with her family physician as soon as possible. Follow up with me in 4 weeks. Outpatient therapy for the time being. She has been given also medication this time around and any followup with her medication and/or renewal and/or changes through her family physician. All the above was explained to her. She verbalized understanding and agreement with plan of care. FAUSTINO TAM MD WMS/modl /[id number] d: 06/28/17 0128 t: 06/28/17 0719, DISCHARGE SUMMARY
[~2017-06-21 10:16] MED LIST changes: +APRESOLINE25 MG PO; +DRISDOL 5050000 UNIT PO; +DURICEF (NON-500 MG PO; +RIFADIN, RIMAC300 MG PO; +ZOFRAN4 MG PO
[2017-06-21 21:49] LABS: BILIRUBIN URINE NEGATIVE (NEGATIVE); BLOOD URINE NEGATIVE /UL (NEGATIVE); COLOR URINE YELLOW (YELLOW); GLUCOSE URINE NEGATIVE (NEGATIVE); KETONE URINE NEGATIVE (NEGATIVE); LEUKOCYTES URINE NEGATIVE /UL (NEGATIVE); NITRITE URINE NEGATIVE (NEGATIVE); PROTEIN URINE 15 mg/dL (NEGATIVE); TURBIDITY URINE CLEAR (CLEAR); UROBILINOGEN URINE NORMAL (NORMAL)
[2017-06-21 21:57] LABS: BACTERIA URINE NEGATIVE (NEGATIVE); RBC URINE 0-2 #/HPF (NEGATIVE); YEAST URINE FEW (NEGATIVE)
[2017-06-22 05:03] LABS: BASOPHIL % 0.2 %; EOSINOPHIL # 0.4 K/uL (0.0-0.5); EOSINOPHIL % 7.9 %; HEMATOCRIT 23.6 % (33.0-46.0); HEMOGLOBIN 7.4 g/dL (10.0-15.0); IMMATURE GRANULOCYTE % 0.2 %; LYMPHOCYTE # 1.4 K/uL (0.8-4.0); LYMPHOCYTE % 26.9 %; MCH 26.2 pg (27.0-34.0); MCHC 31.4 gm/dL (32.0-36.5); MCV 83.7 fl (83.0-98.0); MONOCYTE # 0.4 K/uL (0.0-1.0); MONOCYTE % 7.5 %; MPV 11.2 fl (9.4-12.4); NEUTROPHIL # (ANC) 2.9 K/uL (1.8-7.8); NEUTROPHIL % 57.3 %; NRBC % 0 /100WBC (0-0.00); PLATELET COUNT 354 K/uL (150-450); RBC 2.82 M/uL (3.50-5.50); RDW-CV 14.8 % (11.9-14.6); WBC 5.1 K/uL (4.0-11.0)
[2017-06-22 05:31] LABS: ALK PHOS 84 IU/L (33-138); ANION GAP 11.4 (10.0-19.0); AST 14 IU/L (10-40); BLOOD UREA NITROGEN 9 mg/dL (6-24); CHLORIDE 104 mMol/L (96-110); CO2 28 mMol/L (22-32); CREATININE 0.7 mg/dL (0.5-1.1); POTASSIUM 3.4 mMol/L (3.7-5.1); SODIUM 140 mMol/L (135-145); TOTAL BILIRUBIN 0.2 mg/dL (0.0-1.5); TOTAL PROTEIN 6.3 g/dL (6.0-8.4)
[2017-06-22 05:32] LABS: ALBUMIN 1.9 gm/dL (3.5-5.0); ALT < 10 IU/L (12-78)
[2017-06-27 09:33] LABS: HEMOGLOBIN 9.5 g/dL (10.0-15.0)
[2017-06-27 09:41] LABS: HEMATOCRIT 30.8 % (33.0-46.0)
[2017-06-27] MEDS ORDERED: COLACE100 MG PO (11:55)
[2017-06-27] MEDS ORDERED: GLUCOPHAGE500 MG PO (11:57)
[2017-06-27] MEDS ORDERED: K-TAB ER20 MEQ PO (11:58)
[2017-06-27] MEDS ORDERED: LYRICA 75MG CAP75 MG PO (11:59)
[2017-06-27] MEDS ORDERED: PERCOCET 5-3251 EACH PO (12:00)
== END 2017-06-28 12:10 | disposition disaster alternative care site (69) | DRG 93 ==
LOC: GIRP 10:16
PROVIDERS: Internal Medicine; ADMIT Physical Medicine & Rehabilitation
DX: R26.81 Unsteadiness on feet (principal); I10 Essential (primary) hypertension; D64.9 Anemia, unspecified; E78.5 Hyperlipidemia, unspecified; E11.9 Type 2 diabetes mellitus without complications; Z74.1 Need for assistance with personal care; M81.0 Age-related osteoporosis without current pathological fracture
CPT/HCPCS: A9270; J1650